=== PATIENT | female | born 1970 | race Caucasian/White ===

== ENCOUNTER → 2022-02-08 13:19 | Outpatient (BNVA) | payer OTHER, BC, SELFPAY | PROVIDERS: PCP Internal Medicine; Visit Provider Psychiatry & Neurology Neurology | DX: M54.12 Radiculopathy, cervical region (principal) ==

== ENCOUNTER 2022-03-01 18:47 | Outpatient (REF) | payer OTHER, SELFPAY ==
--- NOTE | ~2022-03-01 | MR_ITS ---
EXAMINATION: MR CERVICAL SPINE WITHOUT CONTRAST CLINICAL INFORMATION: 51-year-old with cervical radiculopathy. COMPARISON: None. TECHNIQUE: MRI of the cervical spine was obtained using routine sequences without contrast. FINDINGS: Alignment: [employer] Machine Operator view demonstrates [id number] cervicothoracic dextrocurvature, convex to the right at C7-T1. Slight lordotic curvature centered at C4-C5. Craniocervical Junction/C1-C2 Articulations: Intact and aligned. Visualized Intracranial Structures: Within normal limits. Vertebral Bodies: Well maintained. Disc Spaces and Endplates: Mild intervertebral disc space height loss noted at C5-C6. Remaining cervical intervertebral disc space heights are well maintained. Endplates appear intact. No significant spondylosis. Bone Marrow: No significant marrow-replacing process or bone marrow edema. Note is made of a 1.4 cm benign vertebral hemangioma occupying most of the C5 vertebral body. Tiny focus of subchondral marrow edema noted along the superior articulating facet of the right C5 vertebral body. C2-C3: No disc herniation or canal stenosis. No significant DJD or neural foraminal stenosis. C3-C4: No disc herniation, canal stenosis, DJD or neural foraminal stenosis. C4-C5: Shallow central to left central disc protrusion with minimal indentation of the ventral thecal sac without cord impingement or canal stenosis. No significant DJD or neural foraminal stenosis. C5-C6: Broad-based central disc protrusion with [id number] flattening of the ventral dural sac without cord impingement or canal stenosis. No significant DJD or neural foraminal stenosis. C6-C7: No disc herniation or canal stenosis. No significant DJD or neural foraminal stenosis. C7-T1: No disc herniation or canal stenosis. No significant DJD or neural foraminal stenosis. Spinal Cord: The cervical and visualized upper thoracic spinal cord is normal in morphology, caliber and signal intensity throughout. Extracranial Soft Tissues: The visualized paravertebral soft tissues are grossly unremarkable. MR/MR cervical spine wo con IMPRESSION: 1. Slight lordotic reversal centered at C4-C5 which is nonspecific but could be secondary to muscle spasm, with [id number] cervicothoracic dextrocurvature convex to the right at C7-T1. 2. Mild disc degenerative changes at C5-C6 with a broad-based central disc protrusion at this level without cord impingement or significant canal stenosis. Shallow central disc protrusion also noted at C4-C5. 3. Prominent vertebral hemangioma within the C5 vertebral body.
== END 2022-03-01 18:48 | disposition home or self-care (01) ==
LOC: HO.MRI 18:47
PROVIDERS: Visit Provider Psychiatry & Neurology Neurology
DX: M54.12 Radiculopathy, cervical region (principal); M54.2 Cervicalgia; S46.811A Strain of other muscles, fascia and tendons at shoulder and upper arm level, right arm, initial encounter
CPT/HCPCS: 72141

== ENCOUNTER → 2022-03-23 10:09 | Outpatient (BNVA) | payer OTHER, SELFPAY | PROVIDERS: PCP Internal Medicine; Visit Provider Psychiatry & Neurology Neurology | DX: R51.9 Headache, unspecified (principal); G24.3 Spasmodic torticollis; M54.12 Radiculopathy, cervical region; R29.2 Abnormal reflex; G89.29 Other chronic pain | CPT/HCPCS: 99212 ==

== ENCOUNTER 2022-04-02 18:43 | Emergency (ER) | payer OTHER, SELFPAY ==
[2022-04-02 18:47] VITALS: BP 155/65; PULSE 95; RESP 16; TEMP 36.8; O2SAT 99; BMI 25.2
== END 2022-04-02 21:55 | disposition left against medical advice (07) ==
LOC: HO.ED 21:45
PROVIDERS: Emergency Provider Emergency Medicine; PCP Psychiatry & Neurology Neurology
DX: R10.9 Unspecified abdominal pain (principal)
CPT/HCPCS: 99281

== ENCOUNTER 2022-04-03 08:55 | Outpatient (REF) | payer OTHER, BC, SELFPAY ==
[2022-04-03 11:17] LABS: MANUAL DIFF FLAG NO
[2022-04-03 11:25] LABS: Basophils Absolute Auto 0.1 X10*3/uL (0.0-0.2); Basophils Percent Auto 0.6 % (0-2); Eosinophils Absolute Auto 0.1 X10*3/uL (0.0-0.4); Eosinophils Percent Auto 1.2 % (0-4); Hematocrit 44.3 % (37.0-47.0); Hemoglobin 14.3 g/dl (12.0-16.0); Imm Gran Abs Auto 0.05 X10*3/uL (0.00-0.03); Imm Gran Pct Auto 0.5 % (0.0-0.4); Lymphocytes Absolute Auto 1.8 X10*3/uL (1.2-4.9); Lymphocytes Percent Auto 17.6 % (20-40); Mean Corpuscular HGB Conc 32.3 g/dl (31.0-35.0); Mean Corpuscular Hemoglobin 29.5 pg (27.0-33.0); Mean Corpuscular Volume 91.5 fL (80.0-98.0); Mean Platelet Volume 9.5 fL (9.4-12.3); Monocytes Percent Auto 9.3 % (2-11); Neutrophils Absolute Auto 7.3 x10*3/uL (2.0-8.3); Neutrophils Percent Auto 70.8 % (45-73); Platelet Count 321 X10*3/uL (160-400); Red Blood Count 4.84 X10*6/uL (4.20-5.50); Red Cell Distribution Width 13.3 % (11.0-16.0); White Blood Count 10.2 X10*3/uL (4.8-10.8)
[2022-04-03 11:58] LABS: Alanine Aminotransferase 9 U/L (0-31); Albumin Level 4.5 g/dL (3.5-5.0); Alkaline Phosphatase 46 U/L (39-117); Anion Gap 11 (12-20); Aspartate Amino Transferase 14 U/L (5-31); Bilirubin Direct 0.3 mg/dL (0.0-0.5); Bilirubin Total 0.8 mg/dL (0.0-1.0); Blood Urea Nitrogen 14 mg/dL (9-16); Calcium 9.6 mg/dL (8.4-10.2); Carbon Dioxide 27 mmol/L (22-29); Chloride 105 mmol/L (96-108); Estimated Glomerular Filt Rate > 60; Glucose Random 93 mg/dL (60-115); Potassium 4.9 mmol/L (3.3-5.1); Sodium 138 mmol/L (135-145); Total Protein 6.9 g/dL (6.5-8.0)
== END 2022-04-03 08:56 | disposition home or self-care (01) ==
LOC: HO.HMGCLDS 08:55
PROVIDERS: PCP Internal Medicine; Visit Provider Nurse Practitioner Family
DX: R10.12 Left upper quadrant pain (principal); D18.00 Hemangioma unspecified site
CPT/HCPCS: 36415; 80048; 80076; 85025

== ENCOUNTER 2022-05-17 08:00 | Outpatient (RCR) | payer OTHER, BC, SELFPAY ==
--- NOTE | 2022-04-19 11:55 | MHC.PT.EP ---
[facility] [place] [facility] [place] [facility] [place] [facility] [address] Nic Humphrey [address] [phone] F: [phone] F: [phone] F: [phone] F: [phone] Physical Therapy Plan of Care Date of Evaluation: Date of Surgery: n/a Diagnosis: spasmodic torticollis, headache Assessment: Patient is a 51 year old female presenting to PT with complaints of pain in her neck and headaches. Pt reports onset of pain began 01/16/2022 due to a shelving unit collapsing on her at work. She presents today with impairments in pain, posture, and muscle tightness. 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 Pt expresses [facility] goal of getting rid of headaches, and is motivated to work towards this in PT. Clinical presentation today is most consistent with signs and sx associated with possible muscle tension headaches and pt will benefit from skilled PT to address the following problems and impairments noted upon evaluation: pain, posture, and muscle tightness. These problems limit the patient with the following functional activities: ADLs, reaching, lifting, and work. The prescribed treatment plan of care is medically necessary. Co-morbidities of none were identified and taken into considerations of plan of care. Pt was educated on HEP, role of PT, prognosis, POC. Frequency and Duration: The patient will be seen 2 x week x 4 weeks Short Term Goals: Pt will demonstrate ability to perform chin tuck with good DNF recruitment in 2 weeks. Pt will demonstrate improved postural awareness by sitting with biomechanically correct posture without cues throughout session to improve overall postural function in 2 weeks. Pt will demonstrate min to no tenderness to R UT and suboccipitals in 2 weeks. Senior Teller Goals: Pt will demonstrate improved NDI score by 10% in 4 weeks for improved functional mobility. Pt will demonstrate ability to reach and lift with min to no pain in 4 weeks for improved ability to work. Treatment Plan: Modalities to reduce pain, spasms and effusion. Manual therapy to restore motion and function. Therapeutic exercise to improve strength and flexibility. Neuromuscular re-education for posture and balance. Therapeutic activities to return to functional activities of daily living. Electronically signed by: Natalya Amaya, PT, DPT, ATC Please sign and return to therapist. Thank you for your referral.
--- NOTE | 2022-05-17 08:42 | MHC.PT.DC ---
[facility] [place] [facility] [place] [facility] [place] [facility] [address] Nic Humphrey [address] [phone] F: [phone] F: [phone] F: [phone] F: [phone] Physical Therapy Discharge Report Diagnosis: spasmodic torticollis, headache Date of Surgery: n/a Date of Evaluation: 04/19/22 Date of Discharge: 05/17/22 Treatments to Date: 8 Cancellations to Date: 0 No Shows to Date: 0 Discharge Status: Achieved Goals Improved Function Independent with HEP Discharge Summary: 05/17/2022: Pt has made good progress since beginning skilled PT. Pain overall is better although she does still get some discomfort at times. She has met nearly all her goals at this time. She is independent and compliant with her HEP. She is able to manage onset of headaches with self massage techniques that we have reviewed. Advised continuation of her HEP at home for alf management of sx as they come up. Max benefits of PT have been provided at this time and skilled PT is no longer indicated at this time. Pt in agreement with d/c today. Electronically signed by: Natalya Amaya, PT, DPT, ATC Please sign and return to therapist. Thank you for your referral.
== END 2022-05-17 08:42 | disposition home or self-care (01) ==
LOC: HO.PTCHIC 08:00
PROVIDERS: Visit Provider Psychiatry & Neurology Neurology
DX: G24.3 Spasmodic torticollis (principal); G89.29 Other chronic pain; R51.9 Headache, unspecified
CPT/HCPCS: 97110; 97140; 97161

== ENCOUNTER → 2022-05-29 14:41 | Outpatient (BNVA) | payer OTHER, SELFPAY | PROVIDERS: PCP Internal Medicine; Visit Provider Psychiatry & Neurology Neurology | DX: R51.9 Headache, unspecified (principal); G24.3 Spasmodic torticollis; R29.2 Abnormal reflex; M47.812 Spondylosis without myelopathy or radiculopathy, cervical region; G89.29 Other chronic pain; M54.12 Radiculopathy, cervical region | CPT/HCPCS: 99212 ==

== ENCOUNTER 2023-05-02 14:23 | Outpatient (AMB) | payer BC, SELFPAY ==
--- NOTE | 2023-05-02 14:24 | A.OFFPC_ITS ---
Vital Signs 05/02/23 14:29 Height 5 ft 11 in Weight 180 lb 6 oz BMI 25.2 BP 122/90 H Blood Pressure Location Rt brachial Position Sitting Pulse 114 H Pulse Source Pulse Oximeter Pulse Oximetry (%) 97 Oxygen Delivery Method Room Air Intake Visit Reasons: Anxiety Allergies amoxicillin Allergy (Unknown, Verified 05/02/23 14:30) shortness of breath oseltamivir Adverse Reaction (Unknown, Verified 05/02/23 14:30) Diarrhea Medication List - Last Reconciled 05/02/23 by Jes Machuca MD amitriptyline 25 mg PO BEDTIME 90 days cyclobenzaprine 5 mg PO BID PRN 30 days escitalopram oxalate 10 mg PO DAILY 90 days gabapentin 600 mg (2 x 300 mg) PO BEDTIME magnesium oxide 400 mg PO DAILY methylprednisolone 0 mg PO pantoprazole 20 mg PO DAILY 30 days Tobacco use date assessed: 05/02/23 Dental Screening Dental Screen Date: 05/02/23 Did you have a dental visit in the last 12 months?: No Did you have a dental problem in the last 6 months where you did not have access to dental care?: No Was dental information given to patient?: No HPI Anxiety HPI Details Patient is a 52-year-old female with history of major depression disorder Was last seen by me 1 year ago when I started her on Lexapro and amitriptyline to sleep at night. Patient did well with Lexapro and then she stopped coming and stop taking medication. She is having relapse now she is crying and tells me that she cannot stop crying even in public places. And she does not know on the why she is crying. Patient also have a panic disorder which starts with a buzzing sensation in her head and then she become very uncomfortable. She tells me that once it happens and she wanted to call her boyfriend and nothing came out of her mouth. She has started seeing a therapist and she tells me that it has helped her a lot and she likes the therapist She has an appointment tomorrow as well they will put her on waiting list to see psychiatrist. Meanwhile I am restarting her on Lexapro 10 mg I have also sent lorazepam 14 tablet 1 mg to be taken 1 at night. Patient is to return next 2 when his stay she has along the paperwork that need to be filled for job as she is not able to work because of depression and anxiety at this time. Labs ordered to be done today. [facility] Surgical History No pertinent past surgical history Social History Housing: Other (mobile home ) Patient Tobacco Use Status: Current everyday Tobacco user Cigarettes Per Day: 6 e-Cigarette/Vaping Use: Never Used Current occupational status: employed Cognitive needs: No Hearing needs: No Vision needs: Yes Questionnaire PHQ-9 Over the last 2 weeks, how often have you been bothered by any of the following problems? 1. Little interest or pleasure in doing things: more than half the days 2. Feeling down, depressed, or hopeless: several days 3. Trouble falling or staying asleep, or sleeping too much: nearly every day 4. Feeling tired or having little energy: nearly every day 5. Poor appetite or overeating: more than half the days 6. Feeling bad about yourself - or that you are a failure or have let yourself or your family down: not at all 7. Trouble concentrating on things, such as reading the newspaper or watching television: not at all 8. Moving or speaking so slowly that other people could have noticed. Or the opposite - being so fidgety or restless that you have been moving around a lot more than usual: not at all 9. Thoughts that you would be better off or of hurting yourself in some way: not at all Total score: 11 Depression Screening Interpretation: Positive 42558 - PHQ-9 Billing: Yes Source: Developed by Drs. Soto Juarez, Nica Etienne, Feng Goodrich and colleagues, with an educational dixon from [employer]. Thrive Questionnaire Date Thrive assessed: 10/05/21 AUDIT C Alcohol Use Questionnaire (AUDIT-C) 1. How often do you have a drink containing alcohol?: Monthly or less 2. How many drinks containing alcohol do you have on a typical day when you are drinking?: 1 or 2 3. How often do you have six or more drinks on one occasion?: Never Total Score: 1 Score Reviewed/Action Taken: Yes RONALD-7 AMB Questionnaire RONALD-7 Date RONALD - 7 assessed: 01/19/22 Feeling nervous, anxious, or on edge: 1 = Several days Not being able to stop or control worryin = Several days Worrying too much about different things: 1 = Several days Trouble relaxin = Several days Being so restless that it is hard to sit still: 1 = Several days Becoming easily annoyed or irritable: 1 = Several days Feeling afraid as if something awful might happen: 1 = Several days Total RONALD-7 score (0-4 normal; 5-9 mild; 10-14 moderate; 15-21 severe): 7 Source: Developed by Drs. Soto Juarez, Nica Etienne, Feng Goodrich and colleagues, with an educational dixon from [employer]. RONALD-7 Assessment Billing RONALD-7 Assessment Tool: RONALD-7 Assessment 26034 Review of Systems Const Denies chills and Denies fever(s) ENT Denies epistaxis and Denies nasal discharge Card Denies chest pain Resp Denies chest congestion, Denies cough and Denies hemoptysis GI Denies diarrhea and Denies nausea Skin/Breast Denies rash Neuro Reports no additional complaints Psych Reports no additional complaints Endo Reports no additional complaints Physical exam (Primary Care) Vital Signs: Last Vital Signs Pulse 114 H 05/02/23 14:29 BP 122/90 H 05/02/23 14:29 Pulse Ox 97 05/02/23 14:29 Oxygen Delivery Method Room Air 05/02/23 14:29 BMI result Body Mass Index 25.2 Tobacco/Smoking Status: Tobacco use Status Tobacco use date assessed 05/02/23 05/02/23 14:30 Patient Tobacco Use Status Current everyday Tobacco 05/02/23 14:24 e-Cigarette/Vaping Use Never Used 05/02/23 14:24 Depression Screening Interpretation: Positive Thrive Assessment: Date of Thrive Assessment Date Thrive assessed 10/05/21 05/02/23 14:24 Const General: cooperative, comfortable and no acute distress Orientation/consciousness: patient oriented x3 HENMT Head: Yes normocephalic Eyes General: appearance normal, both eyes and all related structures Neck Neck: Yes supple Resp Effort & Inspection: normal respiratory effort, no cough and no stridor Cardio Rhythm: regular rhythm Heart sounds: S1 normal heart sound present and S2 normal heart sound present Skin General skin exam: turgor normal Neuro General: patient oriented x3, tone normal and moves all extremities Extrem Right lower extremity: no edema Left lower extremity: no edema Assessment and Plan Assessment & Plan (1) Major depressive disorder, severe: Code(s): F32.2 - Major depressive disorder, single episode, severe without psychotic features (2) Panic anxiety syndrome: Code(s): F41.0 - Panic disorder [episodic paroxysmal anxiety] (3) Anxiety, generalized: Code(s): F41.1 - Generalized anxiety disorder Plan Patient is a 52-year-old female with history of major depression disorder Was last seen by me 1 year ago when I started her on Lexapro and amitriptyline to sleep at night. Patient did well with Lexapro and then she stopped coming and stop taking medication. She is having relapse now she is crying and tells me that she cannot stop crying even in public places. And she does not know on the why she is crying. Patient also have a panic disorder which starts with a buzzing sensation in her head and then she become very uncomfortable. She tells me that once it happens and she wanted to call her boyfriend and nothing came out of her mouth. She has started seeing a therapist and she tells me that it has helped her a lot and she likes the therapist She has an appointment tomorrow as well they will put her on waiting list to see psychiatrist. Meanwhile I am restarting her on Lexapro 10 mg I have also sent lorazepam 14 tablet 1 mg to be taken 1 at night. Patient is to return next 2 when his stay she has along the paperwork that need to be filled for job as she is not able to work because of depression and anxiety at this time. Labs ordered to be done today. Orders: Orders Comprehensive Met. Panel Today F32.2 - Major depressive disorder, single episode, severe without psychotic features, F41.0 - Panic disorder [episodic paroxysmal anxiety], F41.1 - Generalized anxiety disorder Magnesium Today F32.2 - Major depressive disorder, single episode, severe without psychotic features, F41.0 - Panic disorder [episodic paroxysmal anxiety], F41.1 - Generalized anxiety disorder TSH reflex Free T4 Today F32.2 - Major depressive disorder, single episode, severe without psychotic features, F41.0 - Panic disorder [episodic paroxysmal anxiety], F41.1 - Generalized anxiety disorder Vitamin D 25-OH (D2 and D3) Today F32.2 - Major depressive disorder, single episode, severe without psychotic features, F41.0 - Panic disorder [episodic paroxysmal anxiety], F41.1 - Generalized anxiety disorder Complete Blood Count Auto Diff Today F32.2 - Major depressive disorder, single episode, severe without psychotic features, F41.0 - Panic disorder [episodic paroxysmal anxiety], F41.1 - Generalized anxiety disorder Medications: New lorazepam 1 mg PO BEDTIME PRN 14 tabs 0RF anxiety Changed From escitalopram oxalate 10 mg PO DAILY 90 days 90 tabs 0RF To escitalopram oxalate 10 mg PO DAILY 30 days 30 tabs 0RF Coding Level of Care Code Est Pt Level 4 (88510) Diagnoses Major depressive disorder, severe F32.2 Panic anxiety syndrome F41.0 Anxiety, generalized F41.1 Additional Codes RONALD-7 Assessment Billing - RONALD-7 Assessment Tool: RONALD-7 Assessment 02643 ([id number])
[2023-05-02 14:29] VITALS: BP 122/90; PULSE 114; O2SAT 97; BMI 25.2
== END 2023-05-02 14:55 | disposition home or self-care (01) ==
PROVIDERS: PCP Internal Medicine; Visit Provider Internal Medicine
DX: F32.2 Major depressive disorder, single episode, severe without psychotic features (principal); F41.0 Panic disorder [episodic paroxysmal anxiety]; F41.1 Generalized anxiety disorder
CPT/HCPCS: 96127; 99214

== ENCOUNTER 2023-05-02 14:53 | Outpatient (REF) | payer BC, SELFPAY ==
[2023-05-02 15:59] LABS: MANUAL DIFF FLAG NO
[2023-05-02 16:13] LABS: Basophils Absolute Auto 0.1 X10*3/uL (0.0-0.2); Eosinophils Absolute Auto 0.3 X10*3/uL (0.0-0.4); Eosinophils Percent Auto 2.8 % (0-4); Hemoglobin 15.3 g/dl (12.0-16.0); Imm Gran Abs Auto 0.03 X10*3/uL (0.00-0.03); Imm Gran Pct Auto 0.3 % (0.0-0.4); Lymphocytes Absolute Auto 2.4 X10*3/uL (1.2-4.9); Mean Corpuscular HGB Conc 33.3 g/dl (31.0-35.0); Mean Corpuscular Hemoglobin 30.1 pg (27.0-33.0); Mean Corpuscular Volume 90.6 fL (80.0-98.0); Mean Platelet Volume 9.9 fL (9.4-12.3); Monocytes Absolute Auto 0.5 X10*3/uL (0.1-1.2); Neutrophils Absolute Auto 5.8 x10*3/uL (2.0-8.3); Neutrophils Percent Auto 63.9 % (45-73); Platelet Count 296 X10*3/uL (160-400); Red Blood Count 5.08 X10*6/uL (4.20-5.50); Red Cell Distribution Width 12.8 % (11.0-16.0); White Blood Count 9.1 X10*3/uL (4.8-10.8)
[2023-05-02 16:29] LABS: Alanine Aminotransferase 8 U/L (0-31); Albumin Level 4.3 g/dL (3.5-5.0); Alkaline Phosphatase 43 U/L (39-117); Anion Gap 11 (12-20); Aspartate Amino Transferase 16 U/L (5-31); Bilirubin Total 0.5 mg/dL (0.0-1.0); Blood Urea Nitrogen 12 mg/dL (9-16); Calcium 9.9 mg/dL (8.4-10.2); Carbon Dioxide 26 mmol/L (22-29); Chloride 106 mmol/L (96-108); Estimated Glomerular Filt Rate > 60; Glucose Random 184 mg/dL (60-115); Magnesium 2.1 mg/dL (1.6-2.6); Potassium 4.1 mmol/L (3.3-5.1); Sodium 139 mmol/L (135-145); Total Protein 7.2 g/dL (6.5-8.0)
[2023-05-02 16:37] LABS: TSH reflex Free T4 1.56 uIU/mL (0.32-4.0)
[2023-05-06 15:29] LABS: Vitamin D 25-OH, D2 <4 ng/mL; Vitamin D 25-OH, D3 24 ng/mL; Vitamin D 25-OH, Total 24 ng/mL (30-100)
== END 2023-05-02 14:54 | disposition home or self-care (01) ==
LOC: HO.HMGCLDS 14:53
PROVIDERS: PCP Internal Medicine; Visit Provider Internal Medicine
DX: F32.2 Major depressive disorder, single episode, severe without psychotic features (principal); F41.0 Panic disorder [episodic paroxysmal anxiety]; F41.1 Generalized anxiety disorder
CPT/HCPCS: 36415; 80053; 82306; 83735; 84443; 85025

== ENCOUNTER 2023-05-09 09:39 | Outpatient (AMB) | payer BC, SELFPAY ==
[2023-05-09 09:47] VITALS: BP 146/86; PULSE 92; O2SAT 99; BMI 25.4
--- NOTE | 2023-05-09 09:47 | A.OFFPC_ITS ---
Vital Signs 05/09/23 09:47 Height 5 ft 11 in Weight 182 lb 4 oz BMI 25.4 BP 146/86 H Blood Pressure Location Lt brachial Position Sitting Pulse 92 Pulse Source Pulse Oximeter Pulse Oximetry (%) 99 Oxygen Delivery Method Room Air Intake Visit Reasons: 1 week follow up/OK by Joe Allergies amoxicillin Allergy (Unknown, Verified 05/09/23 09:48) shortness of breath oseltamivir Adverse Reaction (Unknown, Verified 05/09/23 09:48) Diarrhea Tobacco use date assessed: 05/09/23 Dental Screening Dental Screen Date: 05/09/23 Did you have a dental visit in the last 12 months?: Yes Did you have a dental problem in the last 6 months where you did not have access to dental care?: No Was dental information given to patient?: No HPI 1 week follow up/OK by Joe HPI Details Patient is a 52-year-old female came in today to have FMLA paperwork filled Patient was seen couple of weeks ago when she presented with severe anxiety and depression could not stop weeping I started her on Lexapro which patient has not been able to orange picker yet. However she tells me that pharmacy has notified that it is ready I also gave her few tablets of lorazepam 1 mg to be taken at night, pharmacy notified us yesterday that it is back ordered so I changed it to 0.5 mg. She is still feeling the same she is seeing counselor every week and still on a waiting list to see psychiatrist. I have pill her paperwork starting from 04/23/2022 till 06/23/2022 Based on her psychiatric condition. Most of the time this visit spent doing the paperwork. [facility] Surgical History No pertinent past surgical history Social History Housing: Other (mobile home ) Patient Tobacco Use Status: Current everyday Tobacco user Cigarettes Per Day: 6 e-Cigarette/Vaping Use: Never Used service: No Current occupational status: employed Cognitive needs: No Hearing needs: No Vision needs: Yes Questionnaire Thrive Questionnaire Date Thrive assessed: 10/05/21 AUDIT C Alcohol Use Questionnaire (AUDIT-C) 1. How often do you have a drink containing alcohol?: Never 3. How often do you have six or more drinks on one occasion?: Never Total Score: 0 Score Reviewed/Action Taken: Yes RONALD-7 AMB Questionnaire RONALD-7 Date RONALD - 7 assessed: 10/05/21 Source: Developed by Drs. Soto Juarez, Nica Etienne, Feng Goodrich and colleagues, with an educational dixon from [employer]. Review of Systems Const Denies chills and Denies fever(s) ENT Denies epistaxis and Denies nasal discharge Card Denies chest pain Resp Denies chest congestion, Denies cough and Denies hemoptysis GI Denies diarrhea and Denies nausea Skin/Breast Denies rash Neuro Reports no additional complaints Psych Reports no additional complaints Endo Reports no additional complaints Physical exam (Primary Care) Vital Signs: Last Vital Signs Pulse 92 05/09/23 09:47 BP 146/86 H 05/09/23 09:47 Pulse Ox 99 05/09/23 09:47 Oxygen Delivery Method Room Air 05/09/23 09:47 BMI result Body Mass Index 25.4 Tobacco/Smoking Status: Tobacco use Status Tobacco use date assessed 05/09/23 05/09/23 09:48 Patient Tobacco Use Status Current everyday Tobacco 05/09/23 09:48 e-Cigarette/Vaping Use Never Used 05/09/23 09:48 Thrive Assessment: Date of Thrive Assessment Date Thrive assessed 10/05/21 05/09/23 09:48 Const General: cooperative, comfortable and no acute distress Orientation/consciousness: patient oriented x3 HENMT Head: Yes normocephalic Eyes General: appearance normal, both eyes and all related structures Neck Neck: Yes supple Resp Effort & Inspection: normal respiratory effort, no cough and no stridor Cardio Rhythm: regular rhythm Heart sounds: S1 normal heart sound present and S2 normal heart sound present Skin General skin exam: turgor normal Neuro General: patient oriented x3, tone normal and moves all extremities Extrem Right lower extremity: no edema Left lower extremity: no edema Assessment and Plan Assessment & Plan (1) Major depressive disorder, severe: Code(s): F32.2 - Major depressive disorder, single episode, severe without psychotic features (2) Panic anxiety syndrome: Code(s): F41.0 - Panic disorder [episodic paroxysmal anxiety] (3) Anxiety, generalized: Code(s): F41.1 - Generalized anxiety disorder Plan Patient is a 52-year-old female came in today to have FMLA paperwork filled Patient was seen couple of weeks ago when she presented with severe anxiety and depression could not stop weeping I started her on Lexapro which patient has not been able to orange picker yet. However she tells me that pharmacy has notified that it is ready I also gave her few tablets of lorazepam 1 mg to be taken at night, pharmacy notified us yesterday that it is back ordered so I changed it to 0.5 mg. She is still feeling the same she is seeing counselor every week and still on a waiting list to see psychiatrist. I have pill her paperwork starting from 04/23/2022 till 06/23/2022 Based on her psychiatric condition. Most of the time this visit spent doing the paperwork. Coding Level of Care Code Est Pt Level 4 (23307) Diagnoses Major depressive disorder, severe F32.2 Panic anxiety syndrome F41.0 Anxiety, generalized F41.1 Comment 30 minute visit
== END 2023-05-09 10:19 | disposition home or self-care (01) ==
PROVIDERS: PCP Internal Medicine; Visit Provider Internal Medicine
DX: F32.2 Major depressive disorder, single episode, severe without psychotic features (principal); F41.0 Panic disorder [episodic paroxysmal anxiety]; F41.1 Generalized anxiety disorder
CPT/HCPCS: 99214

== ENCOUNTER 2023-07-06 07:31 | Outpatient (AMB) | payer BC, SELFPAY ==
--- NOTE | 2023-07-06 07:30 | MHC.PC.OV ---
Intake Visit Reasons: Anxiety Follow Up [phone] Allergies amoxicillin Allergy (Unknown, Verified 07/06/23 07:32) shortness of breath oseltamivir Adverse Reaction (Unknown, Verified 07/06/23 07:32) Diarrhea Medication List - Last Reconciled 07/06/23 by Jes Machuca MD buspirone 5 mg PO TID magnesium oxide 400 mg PO DAILY Tobacco use date assessed: 07/06/23 Dental Screening Dental Screen Date: 07/06/23 Did you have a dental visit in the last 12 months?: No Was dental information given to patient?: Patient has dentist HPI Anxiety Follow Up [phone] HPI Details This is a tele medicine visit Patient is 52-year-old female suffers from severe anxiety panic disorder and depression She has been given multiple medications to try and she could not take any of them because of side effects Lorazepam give her chest pains She could not take gabapentin She could not take Lexapro She could not take venlafaxine She could not take amitriptyline Patient also have a Mirena because of excessive uterine bleeding through OBGYN Dr. Nesha Rodrigez She is seeing a psychiatrist Dr. Fabian who recently gave her venlafaxine that she could not take because of dizziness She is having menopausal symptoms of sweating vaginal dryness unable to sleep I would recommend for her to discuss it further with her OBGYN. She is on FMLA due to psychiatric reasons At this point I am not sure how I can help her. She need to discuss her symptoms with OBGYN and psychiatrist. [facility] Surgical History No pertinent past surgical history Social History Housing: Other (mobile home ) Patient Tobacco Use Status: Current everyday Tobacco user Cigarettes Per Day: 6 e-Cigarette/Vaping Use: Never Used service: No Current occupational status: employed Cognitive needs: No Hearing needs: No Vision needs: Yes Questionnaire PHQ-9 Over the last 2 weeks, how often have you been bothered by any of the following problems? 1. Little interest or pleasure in doing things: more than half the days 2. Feeling down, depressed, or hopeless: nearly every day 3. Trouble falling or staying asleep, or sleeping too much: nearly every day 4. Feeling tired or having little energy: nearly every day 5. Poor appetite or overeating: several days 6. Feeling bad about yourself - or that you are a failure or have let yourself or your family down: not at all 7. Trouble concentrating on things, such as reading the newspaper or watching television: several days 8. Moving or speaking so slowly that other people could have noticed. Or the opposite - being so fidgety or restless that you have been moving around a lot more than usual: not at all 9. Thoughts that you would be better off or of hurting yourself in some way: not at all Total score: 13 Depression Screening Interpretation: Positive Depression Screening Follow-up: Existing condition and In treatment Depression Screening Done: Yes 96258 - PHQ-9 Billing: Yes Source: Developed by Drs. Soto Juarez, Nica Etienne, Feng Goodrich and colleagues, with an educational dixon from [employer]. Thrive Questionnaire Date Thrive assessed: 07/06/23 I am a: Patient What is your living situation today?: I have a steady place to live Within the past 12 months, did the food you bought not last and you didn't have the money to get more?: Never true Within the past 12 months, did you worry whether your food would run out before you got money to buy more?: Never true Do you have trouble paying for medicines?: No Do you have trouble getting transportation to medical appointments?: No Do you have trouble paying your heating and electricity bill?: No Do you have trouble taking care of your child, family member or friend?: No Do you have trouble with day-to-day activities such as bathing, preparing meals, shopping, managing finances, etc.?: No Are you currently unemployed and looking for a job?: No Are you interested in more education?: No Please select the resources that you would like help with: None Currently or been in a relationship where the following occur: no concerns reported AUDIT C Alcohol Use Questionnaire (AUDIT-C) 1. How often do you have a drink containing alcohol?: Monthly or less 2. How many drinks containing alcohol do you have on a typical day when you are drinking?: 1 or 2 3. How often do you have six or more drinks on one occasion?: Never Total Score: 1 Score Reviewed/Action Taken: No RONALD-7 AMB Questionnaire RONALD-7 Date RONALD - 7 assessed: 07/06/23 Feeling nervous, anxious, or on edge: 3 = Nearly every day Not being able to stop or control worryin = Several days Worrying too much about different things: 1 = Several days Trouble relaxin = More than half the days Being so restless that it is hard to sit still: 1 = Several days Becoming easily annoyed or irritable: 3 = Nearly every day Feeling afraid as if something awful might happen: 0 = Not at all Total RONALD-7 score (0-4 normal; 5-9 mild; 10-14 moderate; 15-21 severe): 11 Source: Developed by Drs. Soto Juarez, Nica Etienne, Feng Goodrich and colleagues, with an educational dixon from [employer]. RONALD-7 Assessment Billing RONALD-7 Assessment Tool: RONALD-7 Assessment 24239 Review of Systems Const Denies chills and Denies fever(s) ENT Denies epistaxis and Denies nasal discharge Card Denies chest pain Resp Denies chest congestion, Denies cough and Denies hemoptysis GI Denies diarrhea and Denies nausea Skin/Breast Denies rash Neuro Reports no additional complaints Psych Reports no additional complaints Endo Reports no additional complaints Physical exam (Primary Care) Tobacco/Smoking Status: Tobacco use Status Tobacco use date assessed 07/06/23 07/06/23 07:35 Patient Tobacco Use Status Current everyday Tobacco 07/06/23 07:30 e-Cigarette/Vaping Use Never Used 07/06/23 07:30 PHQ-9: PHQ-9 Score PHQ-9: Total score 13 07/06/23 07:50 Depression Screening Interpretation: Positive Depression Screening Follow-up: Existing condition and In treatment Thrive Assessment: Date of Thrive Assessment Date Thrive assessed 07/06/23 07/06/23 07:38 Currently or been in a relationship where the following occur: no concerns reported Telehealth Telehealth Location of provider rendering services: practice address Location of patient: address on file Patient Identification confirmed using: Name, : Yes Telehealth method: voice only Patient verbally consented to treatment: Yes Patient verbally consented to billing insurance company: Yes Patient informed of any privacy concerns related to visit: Yes Assessment and Plan Assessment & Plan (1) Major depressive disorder, severe: Code(s): F32.2 - Major depressive disorder, single episode, severe without psychotic features (2) Panic anxiety syndrome: Code(s): F41.0 - Panic disorder [episodic paroxysmal anxiety] (3) Anxiety, generalized: Code(s): F41.1 - Generalized anxiety disorder Plan This is a tele medicine visit Patient is 52-year-old female suffers from severe anxiety panic disorder and depression She has been given multiple medications to try and she could not take any of them because of side effects Lorazepam give her chest pains She could not take gabapentin She could not take Lexapro She could not take venlafaxine She could not take amitriptyline Patient also have a Mirena because of excessive uterine bleeding through OBGYN Dr. Nesha Rodrigez She is seeing a psychiatrist Dr. Fabian who recently gave her venlafaxine that she could not take because of dizziness She is having menopausal symptoms of sweating vaginal dryness unable to sleep I would recommend for her to discuss it further with her OBGYN. She is on FMLA due to psychiatric reasons At this point I am not sure how I can help her. She need to discuss her symptoms with OBGYN and psychiatrist. Coding Level of Care Code Tele Est Pt Level 3 (34172) Diagnoses Major depressive disorder, severe F32.2 Panic anxiety syndrome F41.0 Anxiety, generalized F41.1 Additional Codes RONALD-7 Assessment Billing - RONALD-7 Assessment Tool: RONALD-7 Assessment 51151 ([id number]) Time Spent (min) 21 Comment 16 with patient, 5 starting
== END 2023-07-06 08:41 | disposition home or self-care (01) ==
LOC: HO.HMGC 07:31
PROVIDERS: PCP Internal Medicine; Visit Provider Internal Medicine
DX: F32.2 Major depressive disorder, single episode, severe without psychotic features (principal); F41.0 Panic disorder [episodic paroxysmal anxiety]; F41.1 Generalized anxiety disorder
CPT/HCPCS: 99443

== ENCOUNTER 2023-08-14 09:42 | Outpatient (AMB) | payer BC, SELFPAY ==
[2023-08-14 09:43] VITALS: BP 118/78; PULSE 90; BMI 26.0
--- NOTE | 2023-08-14 09:43 | MHC.PC.OV ---
Vital Signs 08/14/23 09:43 Height 5 ft 11 in Weight 186 lb 4 oz BMI 26.0 BP 118/78 Blood Pressure Location Rt brachial Position Sitting Pulse 90 Intake Visit Reasons: 3 month fu Allergies amoxicillin Allergy (Unknown, Verified 08/14/23 09:43) shortness of breath oseltamivir Adverse Reaction (Unknown, Verified 08/14/23 09:43) Diarrhea Medication List - Last Reconciled 08/14/23 by Jes Machuca MD buspirone 5 mg PO TID magnesium oxide 400 mg PO DAILY nicotine (Nicoderm CQ) 1 patch transdermal DAILY Tobacco use date assessed: 08/14/23 Dental Screening Dental Screen Date: 08/14/23 Did you have a dental visit in the last 12 months?: Yes Did you have a dental problem in the last 6 months where you did not have access to dental care?: No Was dental information given to patient?: Patient has dentist HPI 3 month fu HPI Details Patient is a 53-year-old female came in today physical examination Patient suffers from severe anxiety and depression And has tried number of medications without any relief Lorazepam give her chest pains She could not take gabapentin She could not take Lexapro She could not take venlafaxine She could not take amitriptyline Patient also have a Mirena because of excessive uterine bleeding through OBGYN Dr. Nesha Rodrigez She is seeing a psychiatrist Dr. Fabian , she finally has started to feel better Patient could not tell what medications she is taking. She is due for mammogram Due for colonoscopy Pap smear is through OBGYN Patient have number of small angiomas on her abdomen She tells me that her grandmother had similar. Lab order placed to check lipids. Patient is tobacco smoker and is requesting Nicoderm patches I have sent 21 mg patch patient is to get back to me in couple of months to see how she is doing so we can sent step-down script Flu vaccine was given today [facility] Surgical History No pertinent past surgical history Social History Housing: Other (mobile home ) Patient Tobacco Use Status: Current everyday Tobacco user Cigarettes Per Day: 6 e-Cigarette/Vaping Use: Never Used service: No Current occupational status: employed Cognitive needs: No Hearing needs: No Vision needs: Yes Questionnaire Thrive Questionnaire Date Thrive assessed: 07/06/23 AUDIT C Alcohol Use Questionnaire (AUDIT-C) 1. How often do you have a drink containing alcohol?: Monthly or less 2. How many drinks containing alcohol do you have on a typical day when you are drinking?: 1 or 2 3. How often do you have six or more drinks on one occasion?: Never Total Score: 1 Score Reviewed/Action Taken: No RONALD-7 AMB Questionnaire RONALD-7 Date RONALD - 7 assessed: 07/06/23 Source: Developed by Drs. Soto Juarez, Nica Etienne, Feng Goodrich and colleagues, with an educational dixon from [employer]. Review of Systems Const Denies chills, Denies fever(s) and Denies headache(s) Eyes Denies blurry vision ENT Denies headache(s), Denies nasal discharge, Denies nasal obstruction, Denies odynophagia and Denies sinus pain Card Denies chest pain at rest and Denies chest pain with activity Resp Denies cough and Denies hemoptysis GI Denies diarrhea, Denies odynophagia, Denies vomiting and Denies hematemesis Reports as per HPI Musc Denies abnormal gait Skin/Breast Reports as per HPI Neuro Denies Neuro-related abnormal movements, Denies Abnormal speech present, Denies abnormal gait, Denies headache(s) and Denies Sensory deficit (Neuro) Psych Denies mood swings and Denies paranoia Endo Reports as per HPI Marco/Lymph Reports as per HPI Aller/Immun Reports as per HPI Physical exam (Primary Care) Vital Signs: Last Vital Signs Pulse 90 08/14/23 09:43 BP 118/78 08/14/23 09:43 BMI result Body Mass Index 26.0 Tobacco/Smoking Status: Tobacco use Status Tobacco use date assessed 08/14/23 08/14/23 09:45 Patient Tobacco Use Status Current everyday Tobacco 08/14/23 09:45 e-Cigarette/Vaping Use Never Used 08/14/23 09:45 Are you ready to quit: Yes Tobacco cessation counseling provided: Yes Relapse Prevention: discussed the importance of a supportive environment CPT code: 78087 - 4-10 Minutes Thrive Assessment: Date of Thrive Assessment Date Thrive assessed 07/06/23 08/14/23 09:45 Const General: cooperative, comfortable and no acute distress Orientation/consciousness: patient oriented x3 HENMT Head: Yes normocephalic and Yes atraumatic Eyes General: appearance normal, both eyes and all related structures Pupils: Equal, round and reactive pupils present EOM: EOMs intact bilaterally Neck Neck: Yes supple and No lymphadenopathy Thyroid: Thyroid normal Lymphatic: no lymphadenopathy noted Resp Effort & Inspection: normal respiratory effort and able to speak in complete sentences Auscultation: clear to auscultation bilaterally Cardio Heart sounds: S1 normal heart sound present and S2 normal heart sound present GI Palpation (GI): Soft to palpation and nontender Auscultation: normal bowel sounds General: Yes no CVA tenderness Back/Spine/Pelvis Back: no CVA tenderness Skin General skin exam: elasticity normal and turgor normal Neuro General: patient oriented x3 and gait normal Cranial nerves: Yes Equal, round and reactive pupils present Speech: No Abnormal speech present Sensory Exam: No Sensory deficit (Neuro) Coordination: tandem gait normal and Romberg test negative Extrem General: Yes normal exam except as noted and No edema Office Procedures Flu Questionnaire Does the patient have a severe egg allergy?: No Does the patient have severe life threatening allergies?: No Does the patient have a fever or illness today?: No Has the patient ever had Guillain-Cadwell Syndrome?: No Has the patient ever had any past reaction to a flu shot?: No Immunizations flu vacc [id number] 6mos up(PF) 60 mcg(15 mcgx4)/0.5 mL IM syringe Performing Provider: Jes Machuca MD Performing Location: [facility] Administered by: Griselda Kaplan CMA on 08/14/23 10:14 Dose Route Admin Location Dispensed Lot Number Expiration Date NDC System Consultant 0.5 mL IM Right Deltoid 0.5 mL [id number] 03/16/24 06636-941-79 [employer] VIS Given Date VIS Provided VIS Publication Date 08/14/23 Single Vaccine 21 Eligibility Eligibility Date Funding Source Not [facility] Eligible 08/14/23 Private Assessment and Plan Assessment & Plan (1) Encounter for general adult medical examination with abnormal findings: Code(s): Z00.01 - Encounter for general adult medical examination with abnormal findings (2) Major depressive disorder, severe: Code(s): F32.2 - Major depressive disorder, single episode, severe without psychotic features (3) Panic anxiety syndrome: Code(s): F41.0 - Panic disorder [episodic paroxysmal anxiety] (4) Tobacco abuse: Code(s): Z72.0 - Tobacco use Plan Patient is a 53-year-old female came in today physical examination Patient suffers from severe anxiety and depression And has tried number of medications without any relief Lorazepam give her chest pains She could not take gabapentin She could not take Lexapro She could not take venlafaxine She could not take amitriptyline Patient also have a Mirena because of excessive uterine bleeding through OBGYN Dr. Nesha Rodrigez She is seeing a psychiatrist Dr. Fabian , she finally has started to feel better Patient could not tell what medications she is taking. She is due for mammogram Due for colonoscopy Pap smear is through OBGYN Patient have number of small angiomas on her abdomen She tells me that her grandmother had similar. Lab order placed to check lipids. Patient is tobacco smoker and is requesting Nicoderm patches I have sent 21 mg patch patient is to get back to me in couple of months to see how she is doing so we can sent step-down script Flu vaccine was given today Orders: Orders Influenza [id number] Immunization Today Z23 - Encounter for immunization Lipid Panel Today F32.2 - Major depressive disorder, single episode, severe without psychotic features, F41.0 - Panic disorder [episodic paroxysmal anxiety], Z00.01 - Encounter for general adult medical examination with abnormal findings, Z72.0 - Tobacco use MM tomosynthesis screening BI Today Z12.31 - Encounter for screening mammogram for malignant neoplasm of breast Comprehensive [place]. Panel Fast Today F32.2 - Major depressive disorder, single episode, severe without psychotic features, F41.0 - Panic disorder [episodic paroxysmal anxiety], Z00.01 - Encounter for general adult medical examination with abnormal findings, Z72.0 - Tobacco use Referrals Open Access Screening Colonoscopy Referral Z12.11 - Encounter for screening for malignant neoplasm of colon, Z12.12 - Encounter for screening for malignant neoplasm of rectum Medications: New nicotine (Nicoderm CQ) 1 patch transdermal DAILY 28 ea 1RF Coding Level of Care Code Est Pt Prev Care 40-64y(05856) Diagnoses Encounter for general adult medical examination with abnormal findings Z00.01 Major depressive disorder, severe F32.2 Panic anxiety syndrome F41.0 Tobacco abuse Z72.0 Additional Codes Vital Signs *Quality* - CPT code: 03893 - 4-10 Minutes ([id number])
== END 2023-08-14 12:05 | disposition home or self-care (01) ==
PROVIDERS: PCP Internal Medicine; Visit Provider Internal Medicine
DX: Z00.00 Encounter for general adult medical examination without abnormal findings (principal); F32.2 Major depressive disorder, single episode, severe without psychotic features; F41.0 Panic disorder [episodic paroxysmal anxiety]; Z23 Encounter for immunization; Z72.0 Tobacco use
CPT/HCPCS: 90471; 90686; 99396

== ENCOUNTER 2024-05-19 11:32 | Emergency (ER) | payer BC, SELFPAY ==
--- NOTE | ~2024-05-19 | XR_ITS ---
EXAMINATION: XR CHEST CLINICAL INFORMATION: Shortness of breath, positive COMPARISON: None available. TECHNIQUE: 2 views of the chest were obtained. FINDINGS: No focal consolidation. No pneumothorax. Trachea is midline. Heart and mediastinal source is not enlarged. No pleural effusion. Osseous structures are intact. Soft tissues are unremarkable. XR/XR chest 2V IMPRESSION: No acute cardiopulmonary process. Electronically signed by: Yoko Sutton MD 05/19/2024 01:22 PM EDT
[2024-05-19 11:43] VITALS: BP 127/62; PULSE 100; O2SAT 100
[2024-05-19 12:00] VITALS: BP 119/53; PULSE 80; RESP 18; TEMP 36.5; O2SAT 100; BMI 26.3
--- NOTE | 2024-05-19 12:04 | ED.GENADULT ---
HPI - General Adult General Chief complaint: Upper Respiratory Symptoms Stated complaint: +COVID,SOB W/ANXIETY, 100% RA PER EMS Time Seen by Provider: 05/19/24 13:23 History of Present Illness ED Provider: Tori PARK narrative: The patient is a 53-year-old woman who called an ambulance today because she felt short of breath. She says that she was diagnosed with COVID 2 days ago at an urgent care center. She said that 3 days before that she had developed a cough and a sore throat and has been feeling unwell for about 3 or 4 days when she went to the urgent care center and was diagnosed with COVID. She says that she has been having intermittent episodes of a sense of pressure in her chest and today she felt short of breath and called 911. Paramedics felt the patient might be hyperventilating. They spoke to her and she seemed to calm and her respiratory symptoms seemed to improve. The patient says that her problems with breathing over the last few days has been intermittent. She also has a sore throat. Related Data Home Medications ?Medication ?Instructions ?Recorded ?Confirmed buspirone 5 mg tablet 5 mg PO TID 07/06/23 08/14/23 Previous Rx's ?Medication ?Instructions ?Recorded magnesium oxide 400 mg PO DAILY #30 tabs 02/08/22 nicotine 21 mg/24 hr daily 1 patch transdermal DAILY #28 ea 08/14/23 transdermal patch (Nicoderm CQ) albuterol sulfate 90 mcg/actuation 2 inh inhalation Q4-6H PRN 05/19/24 breath activated powder inhaler shortness of breath or wheezing #1 ea Allergies Allergy/AdvReac Type Severity Reaction Status Date / Time amoxicillin Allergy Unknown shortness Verified 05/19/24 12:02 of breath oseltamivir AdvReac Unknown Diarrhea Verified 05/19/24 12:02 Review of Systems Review of Systems: Yes all other systems are reviewed and are negative PMFSH Past Medical History Attestation statement: The following information was validated with the patient. Source: old records reviewed and nursing notes reviewed Surgical History No pertinent past surgical history Social History Social History Housing: Other (mobile home ) Patient Tobacco Use Status: Current everyday Tobacco user Cigarettes Per Day: 6 e-Cigarette/Vaping Use: Never Used Advance Directives: No Advance Directives Information Provided: No Do you have a plan to hurt others: No Plan service: No Current occupational status: employed Cognitive needs: No Hearing needs: No Vision needs: Yes Physical Exam ED Vital Signs: Vital Signs - 24 hr 05/19/24 12:00 05/19/24 13:56 05/19/24 15:05 Temperature 97.7 F 98 F Pulse Rate 80 80 75 Respiratory Rate 18 18 19 Blood Pressure 119/53 L 129/63 Pulse Oximetry 100 99 Oxygen Delivery Method Room Air Room Air BMI result Body Mass Index 26.3 Const Other: The patient is awake, alert, pleasant, cooperative. She does not appear in acute distress. No increased work of breathing. HENMT Other: The appearance of the face is unremarkable. The pharynx appears normal. The posterior pharynx appears normal. No tonsillar enlargement. No exudate. No erythema. Eyes Other: Pupils are round, equal, and reactive to light, extraocular movements intact, conjunctivae clear Neck Other: The patient has bilateral tenderness in the cervical anterior chain. However I do not really appreciate any discrete palpable nodes. Good range of motion of the neck without difficulty. Resp Other: No definite wheezing Effort & Inspection: normal respiratory effort Auscultation: clear to auscultation bilaterally Cardio Rate: regular rate Rhythm: regular rhythm Heart sounds: S1 normal heart sound present and S2 normal heart sound present Skin Other: Skin is dry and unremarkable Neuro Other: The patient is awake and alert with a normal mental status. Cranial nerves are grossly intact. She moves her extremities normally and appropriately. Extrem Other: No calf swelling or tenderness, no asymmetry, no edema Course Course Course Narrative: This is a Rapid Medical Examination (RME) performed by Jamal Gonzales PA-C in triage. Full HPI, ROS, assessment and treatment plan per primary provider in the Main ED. 53 yo female BIBA here for eval of sob and anxiety on waking this morning. reports waking up feeling sob, unsure if her anxiety is exacerbating this. call EMS and then took her anxiety meds (buspar). at presents states my glands feel swollen . + satting 100% on RA Plan: labs, ekg, cxr Medications Administered Discontinued Medications Generic Name Dose Route Start Last Admin Trade Name Freq PRN Reason Stop Dose Admin Albuterol Sulfate 4 puff 05/19/24 13:36 05/19/24 13:55 Albuterol Sulfate 90 Mcg 8 Gm Inhaler INHALE 05/19/24 13:37 4 puff ONCE ONE Administration Medical Decision Making Medical Decision Making [facility] Narrative: The patient is a 53-year-old woman who came to the emergency room because of acute shortness of breath. She apparently tested for COVID at an urgent care center 3 days ago. Paramedics thought she might be hyperventilating. She does not appear short of breath at the time that I saw her. Her vital signs are stable. She has no signs of a DVT. She is not on any hormonal treatment. I do not have a high suspicion for pulmonary embolism. EKG is unremarkable. Chest x-ray is clear. CBC is unremarkable. She was complaining of a sore throat. Her rapid strep is negative. Overall the patient is reassured. Prescribed an albuterol inhaler to see if this might help with her symptoms. Otherwise I think most of her symptoms are related to her COVID. She is given a work note. Lab Data 05/19/24 12:34 05/19/24 12:34 Labs: Lab Results 05/19/24 05/19/24 Range/Units 12:34 14:03 WBC 5.9 (4.8-10.8) X10*3/uL RBC 4.92 (4.20-5.50) X10*6/uL Hgb 14.8 (12.0-16.0) g/dl Hct 42.5 (37.0-47.0) % MCV 86.4 (80.0-98.0) fL MCH 30.1 (27.0-33.0) pg MCHC 34.8 (31.0-35.0) g/dl RDW 12.5 (11.0-16.0) % Plt Count 233 (160-400) X10*3/uL MPV 9.6 (9.4-12.3) fL Immature Gran % (Auto) 0.2 (0.0-0.4) % Neut % (Auto) 71.7 (45-73) % Lymph % (Auto) 18.3 L (20-40) % Piatt % (Auto) 8.4 (2-11) % Eos % (Auto) 0.7 (0-4) % Baso % (Auto) 0.7 (0-2) % Lymph # (Auto) 1.1 L (1.2-4.9) X10*3/uL Piatt # (Auto) 0.5 (0.1-1.2) X10*3/uL Eos # (Auto) 0.0 (0.0-0.4) X10*3/uL Baso # (Auto) 0.0 (0.0-0.2) X10*3/uL Abs Immat Gran (auto) 0.01 (0.00-0.03) X10*3/uL Absolute Neuts (auto) 4.2 (2.0-8.3) x10*3/uL Absolute Nucleated RBC 0.000 (0.0-0.012) X10*3/uL Nucleated RBC % (auto) 0.0 (0.0-0.2) /100WBC Sodium 142 (135-145) mmol/L Potassium 3.7 (3.3-5.1) mmol/L Chloride 109 H (96-108) mmol/L Carbon Dioxide 22 (22-29) mmol/L Anion Gap 15 (12-20) BUN 16 (9-16) mg/dL Creatinine 0.79 (0.5-1.4) mg/dL Estim Creat Clear Calc 98.5 Estimated GFR > 60 Random Glucose 102 (60-115) mg/dL Calcium 10.2 (8.4-10.2) mg/dL Magnesium 2.0 (1.6-2.6) mg/dL Total Bilirubin 0.5 (0.0-1.0) mg/dL AST 20 (5-31) U/L ALT 14 (0-31) U/L Alkaline Phosphatase 52 (39-117) U/L Troponin I High Sens < 2.7 (<3.5-17.0) ng/L Total Protein 6.9 (6.5-8.0) g/dL Albumin 4.1 (3.5-5.0) g/dL S. pyogenes GrpA YANET Negative (Negative) Independent Interpretation I performed an independent interpretation of an: EKG Interpretation: EKG at 12:21 shows normal sinus rhythm at 80 beats per minute. No acute ischemic changes Critical Care Time Critical Care Time Critical Care Time: No Discharge Plan Discharge Clinical Impression: COVID-19, Shortness of breath Patient Disposition: Home, Self-Care Instructions: How to Use a Metered-Dose Inhaler and a Spacer (ED), COVID-19 (Coronavirus Disease 2019) (ED) Additional Instructions: You should be isolated because of your COVID for proximally a total of 10 days. The first 5 days at the most important. After 5 days of isolation at home you may wear a mask when going outside and encountering other people. Nevertheless I think it would be good for you to stay off work until the 10 day rolo. Please use ibuprofen and acetaminophen as needed for discomfort. You have been prescribed albuterol which you may use 2-4 puffs every 4-6 hours as needed for shortness of breath. Stay in touch with your regular doctor for additional advice as needed. Return to the emergency room if significantly worse. Prescriptions: New albuterol sulfate 90 mcg/actuation aerosol powdr breath activated 2 inh inhalation Q4-6H PRN (Reason: shortness of breath or wheezing) Qty: 1 0RF No Action nicotine [Nicoderm CQ] 21 mg/24 hr patch 24 hour 1 patch transdermal DAILY Qty: 28 1RF buspirone 5 mg tablet 5 mg PO TID magnesium oxide 400 mg magnesium tablet 400 mg PO DAILY Qty: 30 6RF Referrals: Jes Machuca MD [Primary Care Provider] - 2 days Stand Alone Forms: Work/School Release Interventions: ED Discharge Assessment Last Done: 05/19/24 15:05 Discharge Date/Time: 05/19/24 15:25 Print Language: Montserratian
--- NOTE | 2024-05-19 12:07 | ECG_ITS ---
Test Reason : SOB Blood Pressure : / mmHG Vent. Rate : 080 BPM Atrial Rate : 080 BPM P-R Int : 154 ms QRS Dur : 078 ms QT Int : 374 ms P-R-T Axes : 051 036 043 degrees QTc Int : 431 ms Normal sinus rhythm Low voltage QRS Borderline ECG No previous ECGs available Referred By: Fanny Gonzales Electronically Signed By:DEDRA HILTON
[2024-05-19 12:40] LABS: MANUAL DIFF FLAG NO
[2024-05-19 12:44] LABS: Basophils Percent Auto 0.7 % (0-2); Eosinophils Percent Auto 0.7 % (0-4); Hematocrit 42.5 % (37.0-47.0); Hemoglobin 14.8 g/dl (12.0-16.0); Imm Gran Abs Auto 0.01 X10*3/uL (0.00-0.03); Imm Gran Pct Auto 0.2 % (0.0-0.4); Lymphocytes Absolute Auto 1.1 X10*3/uL (1.2-4.9); Lymphocytes Percent Auto 18.3 % (20-40); Mean Corpuscular HGB Conc 34.8 g/dl (31.0-35.0); Mean Corpuscular Hemoglobin 30.1 pg (27.0-33.0); Mean Corpuscular Volume 86.4 fL (80.0-98.0); Mean Platelet Volume 9.6 fL (9.4-12.3); Monocytes Absolute Auto 0.5 X10*3/uL (0.1-1.2); Monocytes Percent Auto 8.4 % (2-11); Neutrophils Absolute Auto 4.2 x10*3/uL (2.0-8.3); Neutrophils Percent Auto 71.7 % (45-73); Platelet Count 233 X10*3/uL (160-400); Red Blood Count 4.92 X10*6/uL (4.20-5.50); Red Cell Distribution Width 12.5 % (11.0-16.0); White Blood Count 5.9 X10*3/uL (4.8-10.8)
[2024-05-19 12:57] LABS: Alanine Aminotransferase 14 U/L (0-31); Albumin Level 4.1 g/dL (3.5-5.0); Alkaline Phosphatase 52 U/L (39-117); Anion Gap 15 (12-20); Aspartate Amino Transferase 20 U/L (5-31); Bilirubin Total 0.5 mg/dL (0.0-1.0); Blood Urea Nitrogen 16 mg/dL (9-16); Calcium 10.2 mg/dL (8.4-10.2); Carbon Dioxide 22 mmol/L (22-29); Chloride 109 mmol/L (96-108); Creatinine Clr Calc Pharmacy 98.5; Estimated Glomerular Filt Rate > 60; Glucose Random 102 mg/dL (60-115); Potassium 3.7 mmol/L (3.3-5.1); Sodium 142 mmol/L (135-145); Total Protein 6.9 g/dL (6.5-8.0)
[2024-05-19 13:11] LABS: Troponin-I High Sensitivity < 2.7 ng/L (<3.5-17.0)
[2024-05-19] MEDS: Albuterol Sulfate 90 MCG 8 GM INHALER 4 PUFF INHALE (13:55)
[2024-05-19 13:56] VITALS: PULSE 80; RESP 18; O2SAT 97
[2024-05-19 14:40] LABS: IDNOW Serial# 6674DD1D; Strep A Nucleic Acid Negative (Negative)
[2024-05-19 15:05] VITALS: BP 129/63; PULSE 75; RESP 19; TEMP 36.6; O2SAT 99
== END 2024-05-19 15:25 | disposition home or self-care (01) ==
PROVIDERS: Physician Assistant Medical; Emergency Provider Emergency Medicine; PCP Internal Medicine
DX: U07.1 COVID-19 (principal); R06.02 Shortness of breath; R05.9 Cough, unspecified; J02.9 Acute pharyngitis, unspecified
CPT/HCPCS: 36415; 71046; 80053; 83735; 84484; 85025; 87651; 93005; 94640; 99284

== ENCOUNTER 2024-05-26 08:08 | Outpatient (AMB) | payer BC, SELFPAY ==
[2024-05-26 08:11] VITALS: BP 114/80; PULSE 88; O2SAT 97; BMI 26.4
--- NOTE | 2024-05-26 08:11 | AM.OFFWIN_ITS ---
Intake Vital Signs 05/26/24 08:11 Height 5 ft 11 in Weight 189 lb BMI 26.4 BP 114/80 Blood Pressure Location Rt brachial Position Sitting Pulse 88 Pulse Source Pulse Oximeter Pulse Oximetry (%) 97 Oxygen Delivery Method Room Air Intake Visit Reasons: EP dizzy, tired Intake Note: Patient here for fatigue and dizzy constantly which has been going on for about 1 week. she did recently have covid and since then has been having these symptoms. Patient Tobacco Use Status: Current everyday Tobacco user Allergies amoxicillin Allergy (Unknown, Verified 05/26/24 08:14) shortness of breath oseltamivir Adverse Reaction (Unknown, Verified 05/26/24 08:14) Diarrhea Do you need a note to return to daycare/school/sports/work: Yes HPI HPI Comments History of Present Illness Details Patient is a 53-year-old female who tested positive for COVID 10 days ago. She states that she went to the ER 1 week ago because she felt like an el ephant was sitting on her chest, they did labs, a chest x-ray and an EKG and everything was normal. Patient states she recovered in his feeling much better except she has a residual fatigue and dizziness. She states she quit smoking about a month ago. She states she also has chronic anxiety and panic attacks. She is not comfortable driving right now because of the dizziness. She says the dizziness just comes and goes and nothing seems to provoke it, nothing seems to make it better. She denies any shortness of breath, chest pain PFSH Surgical History No pertinent past surgical history Social History Housing: Other (mobile home ) Patient Tobacco Use Status: Current everyday Tobacco user Cigarettes Per Day: 6 e-Cigarette/Vaping Use: Never Used service: No Current occupational status: employed Cognitive needs: No Hearing needs: No Vision needs: Yes Review of Systems Const All systems reviewed & are unremarkable except as noted in HPI and below Physical Exam Vital Signs: Last Vital Signs Pulse 88 05/26/24 08:11 BP 114/80 05/26/24 08:11 Pulse Ox 97 05/26/24 08:11 Oxygen Delivery Method Room Air 05/26/24 08:11 BMI result Body Mass Index 26.4 Const General: cooperative, healthy appearing, comfortable and no acute distress Orientation/consciousness: patient oriented x3 Limitations: no limitations HEENT Head: Yes normal to inspection Ears: hearing grossly normal bilaterally, external ears normal, EAC's normal (left), Abnormal EAC present excessive cerumen on the left, erythema on the right and edema on the right and unable to visualize TM on the left General nose exam: Normal external nose present, Normal nares present and No nasal discharge present Face and sinus: Yes normal facial exam Mouth: Normal oral and palatal mucosa present and moist mucous membranes Throat: Yes tonsils normal, Yes uvula midline and Yes posterior oropharynx abnormal (Erythema) Eyes General: appearance normal, both eyes and all related structures Neck Neck: Yes normal visual inspection Resp Effort & Inspection: normal respiratory effort, able to speak in complete sentences, no respiratory distress, not tachypneic, no tripod positioning and no use of accessory muscles Skin General skin exam: no rashes or lesions noted Neuro General: patient oriented x3 Extrem General: Yes normal to inspection and Yes no clubbing, cyanosis or edema Assessment & Plan Assessment & Plan (1) Otitis externa of right ear: Code(s): H60.91 - Unspecified otitis externa, right ear Qualifiers: Otitis externa type: other infective Chronicity: acute Qualified Code(s): H60.391 - Other infective otitis externa, right ear Plan: Sent drops to pharmacy (2) Dizziness: Code(s): R42 - Dizziness and giddiness Plan: Could not see either tympanic membrane but likely residual inflammation from her COVID infection, sent prednisone burst to pharmacy Plan see above Medications: New [id number]-LH 3.5-10,000-1 mg/mL-unit/mL-% 4 drps otic (ear) right Q8H 7 days 10 mL 0RF prednisone 20 mg PO DAILY 5 tabs 0RF Coding Level of Care Code Est Pt Level 3 (99110) Diagnoses Other infective acute otitis externa of right ear H60.391 Otitis externa type: other infective Chronicity: acute Dizziness R42
== END 2024-05-26 08:57 | disposition home or self-care (01) ==
PROVIDERS: PCP Internal Medicine; Visit Provider Physician Assistant
DX: H60.391 Other infective otitis externa, right ear (principal); R42 Dizziness and giddiness
CPT/HCPCS: 99213

== ENCOUNTER 2024-06-03 09:14 | Outpatient (AMB) | payer BC, SELFPAY ==
--- NOTE | 2024-06-03 09:16 | A.OFFPC_ITS ---
Vital Signs 06/03/24 09:17 Height 5 ft 11 in Weight 195 lb BMI 27.2 BP 102/68 Blood Pressure Location Rt brachial Position Sitting Pulse 79 Pulse Source Pulse Oximeter Pulse Oximetry (%) 99 Oxygen Delivery Method Room Air Intake Visit Reasons: ED F/u~ Walkn In F/u Allergies amoxicillin Allergy (Unknown, Verified 06/03/24 09:18) shortness of breath oseltamivir Adverse Reaction (Unknown, Verified 06/03/24 09:18) Diarrhea Medication List - Last Reconciled 06/03/24 by Jes Machuca MD albuterol sulfate 90 mcg/actuation 2 inhalations inhalation Q4-6H PRN buspirone 5 mg PO TID magnesium oxide 400 mg PO DAILY Tobacco use date assessed: 06/03/24 Dental Screening Dental Screen Date: 06/03/24 Did you have a dental visit in the last 12 months?: Yes Did you have a dental problem in the last 6 months where you did not have access to dental care?: No Was dental information given to patient?: Patient has dentist HPI ED F/u~ Walkn In /u HPI Details 53-year-old female came in after emergen cy room visit dated 05/19/2022 Patient presented with a chief complaint of shortness a breath secondary to COVID and anxiety She was diagnosed with COVID 2 days prior to arrival at urgent care, patient had mild cough and was feeling unwell, patient verbalized to feeling sensor pressure in her chest so she called 911. Patient have underlying diagnosis of anxiety and is taking buspirone In emergency room her respiratory exam was within normal limit Her EKG was unremarkable Chest x-ray was clear CBC unremarkable, white count 5.9 Strep test negative Patient was a reassured, and was prescribed inhaler albuterol After evaluation patient was discharged She came in today for follow-up appointment She is feeling better, pulse ox is 99% on room air However her anxiety is not controlled Patient is seeing a psychiatrist and therapist, she is on buspirone 5 mg 3 times a day Continued to have panic like feeling at night waking up frequently and pacing around the house Patient says that she has talked about her anxiety with the psychiatrist but they are not helping her She says that she feels she is going to lose her job I am prescribing lorazepam 0.5 mg she may take 1 at night as needed Patient was notified This medication is Habit forming and may cause Psychological dependence, It can cause drowsiness, dizziness, cognitive impairment , slowing of reflexes along with some other side effect . She also have wax buildup in both ears I have sent Debrox ear drops patient is to start using that 5 days before her next appointment in 3 weeks [facility] Surgical History No pertinent past surgical history Social History Housing: Other Patient Tobacco Use Status: Former Tobacco user Cigarettes Per Day: 6 e-Cigarette/Vaping Use: Never Used service: No Current occupational status: employed Cognitive needs: No Hearing needs: No Vision needs: Yes Questionnaire PHQ-9 Over the last 2 weeks, how often have you been bothered by any of the following problems? 1. Little interest or pleasure in doing things: not at all 2. Feeling down, depressed, or hopeless: not at all 3. Trouble falling or staying asleep, or sleeping too much: not at all 4. Feeling tired or having little energy: not at all 5. Poor appetite or overeating: not at all 6. Feeling bad about yourself - or that you are a failure or have let yourself or your family down: not at all 7. Trouble concentrating on things, such as reading the newspaper or watching television: not at all 8. Moving or speaking so slowly that other people could have noticed. Or the opposite - being so fidgety or restless that you have been moving around a lot more than usual: not at all 9. Thoughts that you would be better off or of hurting yourself in some way: not at all Total score: 0 Depression Screening Interpretation: Negative Depression Screening Done: Yes 93619 - PHQ-9 Billing: Yes Source: Developed by Drs. Soto Juarez, Nica Etienne, Feng Goodrich and colleagues, with an educational dixon from [employer]. Thrive Questionnaire Date Thrive assessed: 06/03/24 I am a: Patient Within the past 12 months, did the food you bought not last and you didn't have the money to get more?: Never true Within the past 12 months, did you worry whether your food would run out before you got money to buy more?: Never true Do you have trouble paying for medicines?: No Do you have trouble getting transportation to medical appointments?: No Do you have trouble paying your heating and electricity bill?: No Do you have trouble taking care of your child, family member or friend?: No Do you have trouble with day-to-day activities such as bathing, preparing meals, shopping, managing finances, etc.?: No Are you currently unemployed and looking for a job?: No Are you interested in more education?: No Please select the resources that you would like help with: None Currently or been in a relationship where the following occur: No concerns reported THRIVE Score: 0 AUDIT C Alcohol Use Questionnaire (AUDIT-C) 1. How often do you have a drink containing alcohol?: Monthly or less 2. How many drinks containing alcohol do you have on a typical day when you are drinking?: 1 or 2 3. How often do you have six or more drinks on one occasion?: Never Total Score: 1 Score Reviewed/Action Taken: Yes RONALD-7 AMB Questionnaire RONALD-7 Date RONALD - 7 assessed: 06/03/24 Feeling nervous, anxious, or on edge: 0 = Not at all Not being able to stop or control worryin = Not at all Worrying too much about different things: 0 = Not at all Trouble relaxin = Not at all Being so restless that it is hard to sit still: 0 = Not at all Becoming easily annoyed or irritable: 0 = Not at all Feeling afraid as if something awful might happen: 0 = Not at all Total RONALD-7 score (0-4 normal; 5-9 mild; 10-14 moderate; 15-21 severe): 0 Source: Developed by Drs. Soto Juarez, Nica Etienne, Feng Goodrich and colleagues, with an educational dixon from [employer]. RONALD-7 Assessment Billing RONALD-7 Assessment Tool: RONALD-7 Assessment 25986 Review of Systems Const Denies chills and Denies fever(s) ENT Denies epistaxis and Denies nasal discharge Card Denies chest pain Resp Denies chest congestion, Denies cough and Denies hemoptysis GI Denies diarrhea and Denies nausea Skin/Breast Denies rash Neuro Reports no additional complaints Psych Reports no additional complaints Endo Reports no additional complaints Physical exam (Primary Care) Vital Signs: Last Vital Signs Pulse 79 06/03/24 09:17 BP 102/68 06/03/24 09:17 Pulse Ox 99 06/03/24 09:17 Oxygen Delivery Method Room Air 06/03/24 09:17 BMI result Body Mass Index 27.2 Tobacco/Smoking Status: Tobacco use Status Tobacco use date assessed 06/03/24 06/03/24 09:21 Patient Tobacco Use Status Former Tobacco user 06/03/24 09:21 e-Cigarette/Vaping Use Never Used 06/03/24 09:21 PHQ-9: PHQ-9 Score PHQ-9: Total score 0 06/03/24 09:23 Depression Screening Interpretation: Negative Thrive Assessment: Date of Thrive Assessment Date Thrive assessed 06/03/24 06/03/24 09:21 Currently or been in a relationship where the following occur: No concerns reported Const General: cooperative, comfortable and no acute distress Orientation/consciousness: patient oriented x3 HENMT Other: Wax buildup both ears impacting ear canal Head: Yes normocephalic Eyes General: appearance normal, both eyes and all related structures Neck Neck: Yes supple Resp Effort & Inspection: normal respiratory effort, no cough and no stridor Cardio Rhythm: regular rhythm Heart sounds: S1 normal heart sound present and S2 normal heart sound present Skin General skin exam: turgor normal Neuro General: patient oriented x3, tone normal and moves all extremities Extrem Right lower extremity: no edema Left lower extremity: no edema Assessment and Plan Assessment & Plan (1) Panic anxiety syndrome: Code(s): F41.0 - Panic disorder [episodic paroxysmal anxiety] (2) Impacted cerumen, bilateral: Code(s): H61.23 - Impacted cerumen, bilateral (3) Anxiety about health: Code(s): F41.8 - Other specified anxiety disorders (4) COVID-19 virus infection: Code(s): U07.1 - COVID-19 (5) Shortness of breath: Code(s): R06.02 - Shortness of breath (6) Ex-smoker: Comment: Quit in March of 2024, smoked for 30 years Code(s): Z87.891 - Personal history of nicotine dependence (7) Vivid dream: Code(s): R68.89 - Other general symptoms and signs Plan 53-year-old female came in after emergency room visit dated 05/19/2022 Patient presented with a chief complaint of shortness a breath secondary to COVID and anxiety She was diagnosed with COVID 2 days prior to arrival at urgent care, patient had mild cough and was feeling unwell, patient verbalized to feeling sensor pressure in her chest so she called 911. Patient have underlying diagnosis of anxiety and is taking buspirone In emergency room her respiratory exam was within normal limit Her EKG was unremarkable Chest x-ray was clear CBC unremarkable, white count 5.9 Strep test negative Patient was a reassured, and was prescribed inhaler albuterol After evaluation patient was discharged She came in today for follow-up appointment She is feeling better, pulse ox is 99% on room air However her anxiety is not controlled Patient is seeing a psychiatrist and therapist, she is on buspirone 5 mg 3 times a day Continued to have panic like feeling at night waking up frequently and pacing around the house Patient says that she has talked about her anxiety with the psychiatrist but they are not helping her She says that she feels she is going to lose her job I am prescribing lorazepam 0.5 mg she may take 1 at night as needed Patient was notified This medication is Habit forming and may cause Psychological dependence, It can cause drowsiness, dizziness, cognitive impairment , slowing of reflexes along with some other side effect . She also have wax buildup in both ears I have sent Debrox ear drops patient is to start using that 5 days before her next appointment in 3 weeks Medications: New lorazepam 0.5 mg PO BEDTIME PRN 30 tabs 0RF anxiety carbamide peroxide 6.5% (Debrox) 5 drps otic (ears) Q12H 15 mL 0RF 4 days Coding Level of Care Code Est Pt Level 4 (23466) Diagnoses Panic anxiety syndrome F41.0 Impacted cerumen, bilateral H61.23 Anxiety about health F41.8 COVID-19 virus infection U07.1 Shortness of breath R06.02 Ex-smoker Z87.891 Vivid dream R68.89 Additional Codes RONALD-7 Assessment Billing - RONALD-7 Assessment Tool: RONALD-7 Assessment [id number] ([id number])
[2024-06-03 09:17] VITALS: BP 102/68; PULSE 79; O2SAT 99; BMI 27.2
== END 2024-06-03 09:36 | disposition home or self-care (01) ==
PROVIDERS: PCP Internal Medicine; Visit Provider Internal Medicine
DX: F41.0 Panic disorder [episodic paroxysmal anxiety] (principal); H61.23 Impacted cerumen, bilateral; F41.8 Other specified anxiety disorders; U07.1 COVID-19; R06.02 Shortness of breath; Z87.891 Personal history of nicotine dependence; R68.89 Other general symptoms and signs

== ENCOUNTER → 2024-06-03 09:14 | Outpatient (BNVA) | payer BC, SELFPAY | PROVIDERS: PCP Internal Medicine; Visit Provider Internal Medicine | DX: U07.1 COVID-19 (principal); F41.0 Panic disorder [episodic paroxysmal anxiety]; F41.8 Other specified anxiety disorders; H61.23 Impacted cerumen, bilateral; R68.89 Other general symptoms and signs; Z87.891 Personal history of nicotine dependence | CPT/HCPCS: 96127 ==

== ENCOUNTER 2024-06-17 06:55 | Emergency (ER) | payer BC, SELFPAY ==
--- NOTE | ~2024-06-17 | CT_ITS ---
EXAMINATION: CT ABDOMEN AND PELVIS WITH CONTRAST CLINICAL INFORMATION: Right lower quadrant pain COMPARISON: None available. TECHNIQUE: Multidetector volumetric images were obtained from the superior aspect of the liver through the pubic symphysis following administration 85 mL of Omnipaque 350 intravenous contrast. Sagittal and coronal reformatted images were obtained on the technologist's workstation. Oral contrast: No This CT examination was performed using dose optimization techniques as appropriate, variously including the following: *Automated exposure control *Adjustment of mA and/or kV according to patient size (this includes techniques or standardized protocols for targeted exams where dose is matched to indication/reason for exam; i.e. extremities or head) *Use of iterative reconstruction technique DLP: 649 mGy-cm FINDINGS: LUNG BASES: The visualized lung bases are unremarkable. LIVER, GALLBLADDER, AND BILIARY TREE: Right lobe measures 19.1 cm. Normal attenuation. No focal hepatic lesion or biliary ductal dilatation is present. The gallbladder is unremarkable with no evidence of radiopaque gallstones, gallbladder wall thickening, or obvious pericholecystic inflammatory changes. PANCREAS: Unremarkable. SPLEEN: Unremarkable. ADRENAL GLANDS: Unremarkable. KIDNEYS AND URETERS: The kidneys are normal in size, shape, and attenuation. No hydronephrosis, hydroureter, or calculi seen. No perinephric stranding. BLADDER: Unremarkable. GASTROINTESTINAL TRACT: Stomach is nondistended limiting evaluation. No dilated small or large bowel loops. Nonobstructive bowel gas pattern. Small-moderate volume stool in the large colon. No colonic inflammatory changes seen. Appendix appears unremarkable. No free fluid. No free air. ABDOMINAL WALL: Small fat-containing umbilical hernia. LYMPH NODES: No pathologically enlarged lymph nodes. VASCULAR: Normal caliber aorta. PELVIC VISCERA: IUD in the uterus OSSEOUS STRUCTURES: Multilevel degenerative changes in the spine. CT/CT abdomen pelvis w IV con IMPRESSION: 1. Appendix appears unremarkable without CT evidence of inflammatory changes. 2. No acute intra-abdominal findings otherwise identified. Etiology of the patient's symptoms has not been determined by CT. Clinically correlate. Follow-up imaging for reassessment as clinically warranted. 3. Small-moderate volume stool in the large colon. 4. Hepatomegaly. Fleischner guidelines were followed. Electronically signed by: Isidoro Sidhu MD 06/17/2024 12:23 PM EDT
[2024-06-17 07:01] VITALS: BP 143/83; PULSE 73; RESP 18; TEMP 36.4; O2SAT 100; BMI 25.1
--- NOTE | 2024-06-17 07:48 | ED.GENADULT ---
HPI - General Adult General Chief complaint: Abdominal Pain Stated complaint: constipation Time Seen by Provider: 06/17/24 07:48 History of Present Illness ED Provider: Tori PARK narrative: The patient is a 53-year-old woman who came to the emergency room today because of abdominal discomfort that she thinks might be related to constipation. She says she has not had a bowel movement for 7 or 8 days. She says that over the last 2 years she frequently has rabbit pellet like stools but has never been this long without having any bowel movements at all. No definite fevers. Possibly some mild nausea. She has tried [id number] laxative such as magnesium citrate. Yesterday she tried an enema. Today she had worsening discomfort in the abdomen and came to the emergency room for evaluation. She has no abdominal surgical history. Related Data Home Medications ?Medication ?Instructions ?Recorded ?Confirmed buspirone 5 mg tablet 5 mg PO TID 07/06/23 06/03/24 Previous Rx's ?Medication ?Instructions ?Recorded magnesium oxide 400 mg PO DAILY #30 tabs 02/08/22 albuterol sulfate 90 mcg/actuation 2 inh inhalation Q4-6H PRN 05/19/24 breath activated powder inhaler shortness of breath or wheezing #1 ea carbamide peroxide 6.5 % ear drops 5 drp otic (ears) Q12H 4 days #15 06/03/24 (Debrox) mL lorazepam 0.5 mg tablet 0.5 mg PO BEDTIME PRN anxiety #30 06/03/24 tabs Allergies Allergy/AdvReac Type Severity Reaction Status Date / Time amoxicillin Allergy Unknown shortness Verified 06/17/24 07:03 of breath oseltamivir AdvReac Unknown Diarrhea Verified 06/17/24 07:03 Review of Systems Review of Systems: Yes all other systems are reviewed and are negative PMFSH Past Medical History Surgical History No pertinent past surgical history Social History Social History Housing: Other Unable to assess alcohol history related to: Unknown Patient Tobacco Use Status: Former Tobacco user Cigarettes Per Day: 6 Smoked in Last 30 Days: No e-Cigarette/Vaping Use: Never Used Use of substances other than those prescribed or required for medical reasons: No Advance Directives: No Advance Directives Information Provided: Yes Do you have a plan to hurt others: No Plan service: No Current occupational status: employed Cognitive needs: No Hearing needs: No Vision needs: Yes Physical Exam ED Vital Signs: Vital Signs - 24 hr 06/17/24 07:01 06/17/24 09:35 06/17/24 13:01 Temperature 97.6 F 97.6 F Pulse Rate 73 76 66 Respiratory Rate 18 18 14 Blood Pressure 143/83 H 134/76 134/64 Pulse Oximetry 100 97 100 Oxygen Delivery Method Room Air Room Air Room Air BMI result Body Mass Index 25.1 Const Other: The patient is awake, alert, pleasant, cooperative. Orientation/consciousness: patient oriented x3 HENMT Head: Yes normal to inspection Face and sinus: Yes normal facial exam Mouth: Normal oral and palatal mucosa present and moist mucous membranes Eyes General: appearance normal, both eyes and all related structures Neck Neck: Yes full ROM Resp Effort & Inspection: normal respiratory effort Auscultation: clear to auscultation bilaterally Cardio Rate: regular rate Rhythm: regular rhythm Heart sounds: S1 normal heart sound present and S2 normal heart sound present GI Other: The patient seemed to be tender in the right upper and lower quadrants. She does not seem to have left-sided tenderness. She seems mostly tender in the right lower quadrant. Skin General skin exam: no rashes or lesions noted Neuro General: patient oriented x3 Cognition (Neuro): normal cognition Motor exam (neuro): 5/5 motor strength present throughout Extrem Other: No peripheral edema Medications Administered Discontinued Medications Generic Name Dose Route Start Last Admin Trade Name Freq PRN Reason Stop Dose Admin Sodium Chloride 1,000 mls @ 999 mls/hr 06/17/24 08:00 06/17/24 11:02 Ns IV 06/17/24 09:00 Infused .Q1H1M JACQUIE Infusion Iohexol 85 ml 06/17/24 11:30 06/17/24 11:31 Iohexol 350 Mg/Ml 100 Ml Infus..Btl IV 06/17/24 11:31 85 ml ONCE ONE Administration Ketorolac Tromethamine 10 mg 06/17/24 11:52 06/17/24 12:05 Ketorolac Tromethamine 15 Mg/Ml Vial IVPUSH 06/17/24 11:53 10 mg ONCE ONE Administration Polyethylene Glycol 17 gm 06/17/24 12:32 06/17/24 12:57 Polyethylene Glycol 3350 17 Gm Powd.Pack PO 06/17/24 12:33 17 gm ONCE ONE Administration Medical Decision Making Medical Decision Making [facility] Narrative: The patient is a 53-year-old woman who was concerned that she has not had a bowel movement for 6 or 7 days. She has some abdominal discomfort and some abdominal tenderness. A CT scan of the abdomen and pelvis does not show any significant signs of constipation nor does it show any significant alternate pathology. Labs are unremarkable. I explained to the patient that she did not seem significantly constipated. She seemed puzzled by this. In any event she seems well enough for outpatient management. She was discharged to follow up with her PCP. Lab Data 06/17/24 08:36 06/17/24 10:14 Labs: Lab Results 06/17/24 06/17/24 06/17/24 Range/Units 08:03 08:36 10:14 WBC 5.5 (4.8-10.8) X10*3/uL RBC 4.30 (4.20-5.50) X10*6/uL Hgb 13.1 (12.0-16.0) g/dl Hct 39.5 (37.0-47.0) % MCV 91.9 (80.0-98.0) fL MCH 30.5 (27.0-33.0) pg MCHC 33.2 (31.0-35.0) g/dl RDW 12.7 (11.0-16.0) % Plt Count 206 (160-400) X10*3/uL MPV 9.3 L (9.4-12.3) fL Immature Gran % (Auto) 0.4 (0.0-0.4) % Neut % (Auto) 66.8 (45-73) % Lymph % (Auto) 20.6 (20-40) % [place] % (Auto) 8.0 (2-11) % Eos % (Auto) 3.3 (0-4) % Baso % (Auto) 0.9 (0-2) % Lymph # (Auto) 1.1 L (1.2-4.9) X10*3/uL [place] # (Auto) 0.4 (0.1-1.2) X10*3/uL Eos # (Auto) 0.2 (0.0-0.4) X10*3/uL Baso # (Auto) 0.1 (0.0-0.2) X10*3/uL Abs Immat Gran (auto) 0.02 (0.00-0.03) X10*3/uL Absolute Neuts (auto) 3.7 (2.0-8.3) x10*3/uL Absolute Nucleated RBC 0.000 (0.0-0.012) X10*3/uL Nucleated RBC % (auto) 0.0 (0.0-0.2) /100WBC Sodium 143 (135-145) mmol/L Potassium 4.9 D (3.3-5.1) mmol/L Chloride 112 H (96-108) mmol/L Carbon Dioxide 25 (22-29) mmol/L Anion Gap 11 L (12-20) BUN 9 (9-16) mg/dL Creatinine 0.73 (0.5-1.4) mg/dL Estim Creat Clear Calc 98.4 Estimated GFR > 60 Random Glucose 93 (60-115) mg/dL Calcium 9.5 D (8.4-10.2) mg/dL Total Bilirubin 0.6 (0.0-1.0) mg/dL Direct Bilirubin 0.1 (0.0-0.5) mg/dL AST 20 (5-31) U/L ALT 15 (0-31) U/L Alkaline Phosphatase 52 (39-117) U/L C-Reactive Protein 0.13 (< or = 0.50) mg/dL Total Protein 6.1 L (6.5-8.0) g/dL Albumin 3.8 (3.5-5.0) g/dL Beta HCG, Quant < 2 mIU/mL Urine Color Yellow Urine Appearance Clear Urine pH 5.5 (5.0-9.0) Ur Specific [place] 1.010 (1.005-1.025) Urine Protein Negative (Neg-Trace) mg/dL Urine Glucose (UA) Negative (Negative) mg/dL Urine Ketones Negative (Negative) mg/dL Urine Blood Trace H (Negative) Urine Nitrite Negative (Negative) Ur Leukocyte Esterase Negative (Negative) Urine RBC 0-2 (0-2) /HPF Urine WBC 0-5 (0-5) /HPF Ur Squamous Epith Cells 0-2 (0-2) /HPF Urine Bacteria None Seen (None Seen) Hyaline Casts 0-2 (0-2) /LPF Discharge Plan Discharge Clinical Impression: Abdominal discomfort Patient Disposition: Home, Self-Care Additional Instructions: Your CT scan is not showing any concerning process. Additionally it is not showing any obvious signs of significant constipation. Your blood testing is also reassuring. I think it would be reasonable for you to continue MiraLax (polyethylene glycol) once a day for the next few days until you feel you were definitely passing some stool. You may try simethicone as well. Please keep your appointment with your regular doctor next week. Return to the emergency room if significantly worse. Prescriptions: No Action albuterol sulfate 90 mcg/actuation aerosol powdr breath activated 2 inh inhalation Q4-6H PRN (Reason: shortness of breath or wheezing) Qty: 1 0RF buspirone 5 mg tablet 5 mg PO TID magnesium oxide 400 mg magnesium tablet 400 mg PO DAILY Qty: 30 6RF lorazepam 0.5 mg tablet 0.5 mg PO BEDTIME PRN (Reason: anxiety) Qty: 30 0RF Debrox 6.5 % drops 5 drp otic (ears) Q12H 4 Days Qty: 15 0RF Referrals: Jes Machuca MD [Primary Care Provider] - (Abdominal pains, decreased stooling frequency) Interventions: ED Discharge Assessment Last Done: 06/17/24 13:01 Discharge Date/Time: 06/17/24 13:13 Print Language: Frisian
[2024-06-17] MEDS: 0.9 % Sodium Chloride 1,000 ML 999 ML IV (08:13)
[2024-06-17 08:17] LABS: Appearance Urine Clear; Color Urine Yellow; Glucose Urine UA Negative (Negative); Leukocyte Esterase Urine Negative (Negative); Nitrite Urine Negative (Negative); PH 5.5 (5.0-9.0); UMIC TRIGGER UACC YES; Urine Blood Trace (Negative); Urine Ketones Negative (Negative); Urine Protein Negative (Neg-Trace)
[2024-06-17 08:20] LABS: Bacteria Urine None Seen (None Seen); Hyaline Casts Urine 0-2 /LPF (0-2); RBC Urine 0-2 /HPF (0-2); Squamous Epithelial Cell Urine 0-2 /HPF (0-2); WBC Urine 0-5 /HPF (0-5)
[2024-06-17 08:43] LABS: Basophils Absolute Auto 0.1 X10*3/uL (0.0-0.2); Basophils Percent Auto 0.9 % (0-2); Eosinophils Absolute Auto 0.2 X10*3/uL (0.0-0.4); Eosinophils Percent Auto 3.3 % (0-4); Hematocrit 39.5 % (37.0-47.0); Hemoglobin 13.1 g/dl (12.0-16.0); Imm Gran Abs Auto 0.02 X10*3/uL (0.00-0.03); Imm Gran Pct Auto 0.4 % (0.0-0.4); Lymphocytes Absolute Auto 1.1 X10*3/uL (1.2-4.9); Lymphocytes Percent Auto 20.6 % (20-40); Mean Corpuscular HGB Conc 33.2 g/dl (31.0-35.0); Mean Corpuscular Hemoglobin 30.5 pg (27.0-33.0); Mean Corpuscular Volume 91.9 fL (80.0-98.0); Mean Platelet Volume 9.3 fL (9.4-12.3); Monocytes Absolute Auto 0.4 X10*3/uL (0.1-1.2); Neutrophils Absolute Auto 3.7 x10*3/uL (2.0-8.3); Neutrophils Percent Auto 66.8 % (45-73); Platelet Count 206 X10*3/uL (160-400); Red Cell Distribution Width 12.7 % (11.0-16.0); White Blood Count 5.5 X10*3/uL (4.8-10.8)
[2024-06-17 08:47] LABS: MANUAL DIFF FLAG NO
[2024-06-17 09:35] VITALS: BP 134/76; PULSE 76; RESP 18; O2SAT 97
[2024-06-17 10:47] LABS: Alanine Aminotransferase 15 U/L (0-31); Albumin Level 3.8 g/dL (3.5-5.0); Alkaline Phosphatase 52 U/L (39-117); Anion Gap 11 (12-20); Aspartate Amino Transferase 20 U/L (5-31); Bilirubin Direct 0.1 mg/dL (0.0-0.5); Bilirubin Total 0.6 mg/dL (0.0-1.0); Blood Urea Nitrogen 9 mg/dL (9-16); C Reactive Protein 0.13 mg/dL (< or = 0.50); Calcium 9.5 mg/dL (8.4-10.2); Carbon Dioxide 25 mmol/L (22-29); Chloride 112 mmol/L (96-108); Creatinine Clr Calc Pharmacy 98.4; Estimated Glomerular Filt Rate > 60; Glucose Random 93 mg/dL (60-115); HCG Quantitative < 2 mIU/mL; Potassium 4.9 mmol/L (3.3-5.1); Sodium 143 mmol/L (135-145); Total Protein 6.1 g/dL (6.5-8.0)
[2024-06-17] MEDS: iohexoL 350 MG/ML 100 ML INFUS..BTL 85 ML IV (11:31)
[2024-06-17] MEDS: Ketorolac Tromethamine 15 MG/ML VIAL 10 MG IVPUSH (12:05)
[2024-06-17] MEDS: polyethylene glycoL 3350 17 GM POWD.PACK PO (12:57)
[2024-06-17 13:01] VITALS: BP 134/64; PULSE 66; RESP 14; TEMP 36.4; O2SAT 100
== END 2024-06-17 13:13 | disposition home or self-care (01) ==
PROVIDERS: Emergency Provider Emergency Medicine; PCP Internal Medicine
DX: R10.31 Right lower quadrant pain (principal); Z87.891 Personal history of nicotine dependence; Z79.899 Other long term (current) drug therapy
CPT/HCPCS: 36415; 74177; 80048; 80076; 81001; 84702; 85025; 86140; 96361; 96374; 99284; J1885; Q9967

== ENCOUNTER 2024-06-25 08:39 | Outpatient (AMB) | payer BC, SELFPAY ==
[2024-06-25 08:44] VITALS: BP 122/82; PULSE 90; O2SAT 98; BMI 26.9
--- NOTE | 2024-06-25 08:44 | MHC.PC.OV ---
Vital Signs 06/25/24 08:44 Height 5 ft 11 in Weight 193 lb 2 oz BMI 26.9 BP 122/82 Blood Pressure Location Rt brachial Position Sitting Pulse 90 Pulse Source Pulse Oximeter Pulse Oximetry (%) 98 Oxygen Delivery Method Room Air Intake Visit Reasons: 3 week follow up wax removal Allergies amoxicillin Allergy (Unknown, Verified 06/25/24 08:47) shortness of breath oseltamivir Adverse Reaction (Unknown, Verified 06/25/24 08:47) Diarrhea Medication List - Last Reconciled 06/25/24 by Jes Machuca MD albuterol sulfate 90 mcg/actuation 2 inhalations inhalation Q4-6H PRN buspirone 5 mg PO TID carbamide peroxide 6.5% (Debrox) 5 drps otic (ears) Q12H 4 days lorazepam 0.5 mg PO BEDTIME PRN magnesium oxide 400 mg PO DAILY Tobacco use date assessed: 06/25/24 Dental Screening Dental Screen Date: 06/25/24 Did you have a dental visit in the last 12 months?: Yes Did you have a dental problem in the last 6 months where you did not have access to dental care?: No Was dental information given to patient?: Patient has dentist HPI 3 week follow up wax removal HPI Details 53-year-old female came in today to talk about constipation She was in ER few days ago as she has not had bowel movement in 7 days She had workup done and then was discharged Patient says that she has a long history of constipation She was taking MiraLax and probiotic but has not had bowel movement in 7 days Patient says usually MiraLax work I have told her to start taking Senokot S2 tablets at night, if that does not work add Dulcolax, if that does not work add MiraLax and glycerin suppositories She is also due for colonoscopy I will book the appointment for that Patient also want to talk about her sleep, she says that sometimes she wakes up from her sleep in tear She feels as if her heart. She is afraid to take medication for sleep thinking that she will not be able to wake up Patient is feeling distress and afraid to sleep because of that I will be referring her to sleep specialist for further management She did try to use wax softening drops Right ear wax is still hard, we were not able to remove that Left ear is clear now [facility] Surgical History No pertinent past surgical history Social History Housing: Other Unable to assess alcohol history related to: Unknown Patient Tobacco Use Status: Former Tobacco user Cigarettes Per Day: 6 e-Cigarette/Vaping Use: Never Used service: No Current occupational status: employed Cognitive needs: No Hearing needs: No Vision needs: Yes Questionnaire PHQ-9 Over the last 2 weeks, how often have you been bothered by any of the following problems? 1. Little interest or pleasure in doing things: several days 2. Feeling down, depressed, or hopeless: several days 3. Trouble falling or staying asleep, or sleeping too much: more than half the days 4. Feeling tired or having little energy: several days 5. Poor appetite or overeating: not at all 6. Feeling bad about yourself - or that you are a failure or have let yourself or your family down: not at all 7. Trouble concentrating on things, such as reading the newspaper or watching television: not at all 8. Moving or speaking so slowly that other people could have noticed. Or the opposite - being so fidgety or restless that you have been moving around a lot more than usual: not at all 9. Thoughts that you would be better off or of hurting yourself in some way: not at all Total score: 5 Depression Screening Interpretation: Negative Depression Screening Done: Yes 38584 - PHQ-9 Billing: Yes Source: Developed by Drs. Soto Juarez, Nica Etienne, Feng Goodrich and colleagues, with an educational dixon from [employer]. Thrive Questionnaire Date Thrive assessed: 06/25/24 I am a: Patient What is your living situation today?: I have a steady place to live Within the past 12 months, did the food you bought not last and you didn't have the money to get more?: Never true Within the past 12 months, did you worry whether your food would run out before you got money to buy more?: Never true Do you have trouble paying for medicines?: No Do you have trouble getting transportation to medical appointments?: No Do you have trouble paying your heating and electricity bill?: No Do you have trouble taking care of your child, family member or friend?: No Do you have trouble with day-to-day activities such as bathing, preparing meals, shopping, managing finances, etc.?: No Are you currently unemployed and looking for a job?: No Are you interested in more education?: No Please select the resources that you would like help with: None Currently or been in a relationship where the following occur: No concerns reported THRIVE Score: 0 AUDIT C Alcohol Use Questionnaire (AUDIT-C) 1. How often do you have a drink containing alcohol?: 2-4 times a month 2. How many drinks containing alcohol do you have on a typical day when you are drinking?: 1 or 2 3. How often do you have six or more drinks on one occasion?: Never Total Score: 2 Score Reviewed/Action Taken: Yes RONALD-7 AMB Questionnaire RONALD-7 Date RONALD - 7 assessed: 06/25/24 Feeling nervous, anxious, or on edge: 1 = Several days Not being able to stop or control worryin = Several days Worrying too much about different things: 2 = More than half the days Trouble relaxin = Several days Being so restless that it is hard to sit still: 0 = Not at all Becoming easily annoyed or irritable: 1 = Several days Feeling afraid as if something awful might happen: 0 = Not at all Total RONALD-7 score (0-4 normal; 5-9 mild; 10-14 moderate; 15-21 severe): 6 Source: Developed by Drs. Soto Juarez, Nica Etienne, Feng Goodrich and colleagues, with an educational dixon from [employer]. RONALD-7 Assessment Billing RONALD-7 Assessment Tool: RONALD-7 Assessment 12606 Review of Systems Const Denies chills and Denies fever(s) ENT Denies epistaxis and Denies nasal discharge Card Denies chest pain Resp Denies chest congestion, Denies cough and Denies hemoptysis GI Denies diarrhea and Denies nausea Skin/Breast Denies rash Neuro Reports no additional complaints Psych Reports no additional complaints Endo Reports no additional complaints Physical exam (Primary Care) Vital Signs: Last Vital Signs Pulse 90 06/25/24 08:44 BP 122/82 06/25/24 08:44 Pulse Ox 98 06/25/24 08:44 Oxygen Delivery Method Room Air 06/25/24 08:44 BMI result Body Mass Index 26.9 Tobacco/Smoking Status: Tobacco use Status Tobacco use date assessed 06/25/24 06/25/24 08:47 Patient Tobacco Use Status Former Tobacco user 06/25/24 08:45 e-Cigarette/Vaping Use Never Used 06/25/24 08:45 PHQ-9: PHQ-9 Score PHQ-9: Total score 5 06/25/24 09:03 Depression Screening Interpretation: Negative Thrive Assessment: Date of Thrive Assessment Date Thrive assessed 06/25/24 06/25/24 08:47 Currently or been in a relationship where the following occur: No concerns reported Const General: cooperative, comfortable and no acute distress Orientation/consciousness: patient oriented x3 HENMT Other: Right ear wax is hard Left ear wax soft Head: Yes normocephalic Eyes General: appearance normal, both eyes and all related structures Neck Neck: Yes supple Resp Effort & Inspection: normal respiratory effort, no cough and no stridor Cardio Rhythm: regular rhythm Heart sounds: S1 normal heart sound present and S2 normal heart sound present Skin General skin exam: turgor normal Neuro General: patient oriented x3, tone normal and moves all extremities Extrem Right lower extremity: no edema Left lower extremity: no edema Office Procedures Cerumen Removal From which ear canal was the cerumen removed: bilateral Removal: irrigation Notes: patient tolerated procedure well, no complications and ear canal clear [id number] Irrigation/Lavage Coding Level of Care Code Est Pt Level 5 (05092) Diagnoses 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 Night sweats R61 Vivid dream R68.89 Panic anxiety syndrome F41.0 Difficulty sleeping G47.9 Major depressive disorder, severe F32.2 Impacted cerumen, bilateral H61.23 Constipation by delayed colonic transit K59.01 CPT Codes Office Procedure - CPT: 55601-Ffz Irrigation/Lavage ([id number]) Additional Codes RONALD-7 Assessment Billing - RONALD-7 Assessment Tool: RONALD-7 Assessment 32272 ([id number]) Assessment & Plan Assessment & Plan (1) 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 - Nightmare disorder Category: Medical (2) Night sweats: Code(s): R61 - Generalized hyperhidrosis Category: Medical (3) Vivid dream: Code(s): R68.89 - Other general symptoms and signs Category: Medical (4) Panic anxiety syndrome: Code(s): F41.0 - Panic disorder [episodic paroxysmal anxiety] Category: Medical (5) Difficulty sleeping: Code(s): G47.9 - Sleep disorder, unspecified Category: Medical (6) Major depressive disorder, severe: Code(s): F32.2 - Major depressive disorder, single episode, severe without psychotic features Category: Medical (7) Impacted cerumen, bilateral: Comment: Patient will continue ear wax removal drops right ear Code(s): H61.23 - Impacted cerumen, bilateral Category: Medical (8) Constipation by delayed colonic transit: Code(s): K59.01 - Slow transit constipation Category: Medical Plan 53-year-old female came in today to talk about constipation She was in ER few days ago as she has not had bowel movement in 7 days She had workup done and then was discharged Patient says that she has a long history of constipation She was taking MiraLax and probiotic but has not had bowel movement in 7 days Patient says usually MiraLax work I have told her to start taking Senokot S2 tablets at night, if that does not work add Dulcolax, if that does not work add MiraLax and glycerin suppositories She is also due for colonoscopy I will book the appointment for that Patient also want to talk about her sleep, she says that sometimes she wakes up from her sleep in tear She feels as if her heart. She is afraid to take medication for sleep thinking that she will not be able to wake up Patient is feeling distress and afraid to sleep because of that I will be referring her to sleep specialist for further management She did try to use wax softening drops Right ear wax is still hard, we were not able to remove that Left ear is clear now 45 minute appointment including [id number] ear irrigation, coordination of care Orders: Referrals Sleep Medicine Referral F51.5 - Nightmare disorder, G47.9 - Sleep disorder, unspecified, R68.89 - Other general symptoms and signs Open Access Screening Colonoscopy Referral Z12.11 - Encounter for screening for malignant neoplasm of colon, Z12.12 - Encounter for screening for malignant neoplasm of rectum Medications: Refilled carbamide peroxide 6.5% (Debrox) 5 drps otic (ears) Q12H 15 mL 0RF 4 days
== END 2024-06-25 09:41 | disposition home or self-care (01) ==
PROVIDERS: PCP Internal Medicine; Visit Provider Internal Medicine
DX: F51.5 Nightmare disorder (principal); F32.2 Major depressive disorder, single episode, severe without psychotic features; H61.23 Impacted cerumen, bilateral; R61 Generalized hyperhidrosis; R68.89 Other general symptoms and signs; F41.0 Panic disorder [episodic paroxysmal anxiety]; G47.9 Sleep disorder, unspecified; K59.01 Slow transit constipation

== ENCOUNTER → 2024-06-25 08:39 | Outpatient (BNVA) | payer BC, SELFPAY | PROVIDERS: PCP Internal Medicine; Visit Provider Internal Medicine | DX: H61.23 Impacted cerumen, bilateral (principal); F51.5 Nightmare disorder; R61 Generalized hyperhidrosis; R68.89 Other general symptoms and signs; F41.0 Panic disorder [episodic paroxysmal anxiety]; G47.9 Sleep disorder, unspecified; F32.2 Major depressive disorder, single episode, severe without psychotic features; K59.01 Slow transit constipation | CPT/HCPCS: 69209; 96127 ==

== ENCOUNTER 2024-07-02 01:12 | Emergency (ER) | payer BC, SELFPAY ==
[2024-07-02 01:17] VITALS: BP 130/90; PULSE 82; O2SAT 98
[2024-07-02 01:18] VITALS: BP 141/97; PULSE 100; RESP 28; TEMP 36.8; O2SAT 100; BMI 25.9
--- NOTE | 2024-07-02 01:21 | ECG_ITS ---
Test Reason : ABD PAIN Blood Pressure : / mmHG Vent. Rate : 073 BPM Atrial Rate : 073 BPM P-R Int : 154 ms QRS Dur : 076 ms QT Int : 384 ms P-R-T Axes : 067 048 052 degrees QTc Int : 423 ms Artifact in tracing Normal sinus rhythm Normal ECG When compared with ECG of 19-MAY-2024 12:21, Nonspecific T wave abnormality no longer evident in Anterior leads Referred By: Lulu Ferrari Electronically Signed By:SHEILA MARCANO
--- NOTE | 2024-07-02 01:31 | ED.ABDPAIN ---
HPI - Abdominal Pain General Chief Complaint: Abdominal Pain Stated Complaint: ABDOMINAL PAIN Time Seen by Provider: 07/02/24 01:26 Source: patient and EMS Mode of arrival: EMS Limitations: no limitations History of Present Illness ED Provider: ALLY HPI narrative: 53 yo female with PMH of anxiety, constipation, depression, migraines here with 6 days of epigastric pain and LUQ pain today started to have n/v she notes she is having normal BMs and passing flatus. She denies fevers or diarrhea. She has no sick contacts. She has never had abdominal surgery. She notes she has never had pain like this before, no trauma, no food triggers. MD elicited complaint: abdominal pain Pertinent past history: none Onset (ago): day(s) (6) Pain Consistency: intermittent Location: epigastric and LUQ Severity: severe Quality: stabbing and aching Radiation: none Migration to: no migration Exacerbating factors: eating and movement Relieving factors: nothing Associated symptoms: nausea and vomiting Related Data Home Medications ?Medication ?Instructions ?Recorded ?Confirmed buspirone 5 mg tablet 5 mg PO TID 07/06/23 06/25/24 Previous Rx's ?Medication ?Instructions ?Recorded magnesium oxide 400 mg PO DAILY #30 tabs 02/08/22 albuterol sulfate 90 mcg/actuation 2 inh inhalation Q4-6H PRN 05/19/24 breath activated powder inhaler shortness of breath or wheezing #1 ea lorazepam 0.5 mg tablet 0.5 mg PO BEDTIME PRN anxiety #30 06/03/24 tabs carbamide peroxide 6.5 % ear drops 5 drp otic (ears) Q12H 4 days #15 06/25/24 (Debrox) mL Allergies Allergy/AdvReac Type Severity Reaction Status Date / Time amoxicillin Allergy Unknown shortness Verified 07/02/24 01:19 of breath oseltamivir AdvReac Unknown Diarrhea Verified 07/02/24 01:19 Review of Systems Review of Systems Constitutional : No Weight loss, No Fever, No Chills ENT/Mouth : No sore throat, No Rhinorrhea Eyes: No Swelling, No Redness Cardiovascular : No Chest Pain, No SOB, NoEdema Respiratory : No Cough, No Sputum, No Wheezing Gastrointestinal : Positive Nausea, Positive Vomiting, no Diarrhea, positive abdominal Pain, No Hematochezia, No Melena Genitourinary : No Dysuria, No Urinary Frequency, No Hematuria, No Urgency Musculoskeletal : No joint pain, No Myalgias, No Joint Swelling Skin : No Skin Lesions, No rash Neuro : No Weakness, No Numbness, No Dizziness, No Headache Psych : No Anxiety/Panic, No Depression All other systems reviewed and are negative. [facility] Past Medical History Attestation statement: The following information was validated with the patient. Source: old records reviewed Medical History Dream anxiety disorder Neck pain on right side Headache Anxiety about health Major depressive disorder, severe Surgical History No pertinent past surgical history Social History Social History Housing: Other Unable to assess alcohol history related to: Unknown Patient Tobacco Use Status: Former Tobacco user Cigarettes Per Day: 6 e-Cigarette/Vaping Use: Never Used service: No Current occupational status: employed Cognitive needs: No Hearing needs: No Vision needs: Yes Physical Exam ED Vital Signs: Vital Signs - 24 hr 07/02/24 01:18 Temperature 98.2 F Pulse Rate 100 Respiratory Rate 28 H Blood Pressure 141/97 H Pulse Oximetry 100 Oxygen Delivery Method Room Air BMI result Body Mass Index 25.9 Appearance: Alert. Oriented X3. anxious crying hyperventilating mild acute distress. Eyes: Pupils equal, round and reactive to light. ENT: Pharynx normal. Neck: Normal inspection. Neck supple. CVS: Normal heart rate and rhythm. Pulses normal. Respiratory: No respiratory distress. Breath sounds normal. Abdomen: Soft and ttp in epigastric area Skin: Skin warm and dry. Normal skin color. Extremities: No lower extremity edema. Neuro: Oriented X 3. No motor deficit. No sensory deficit. Course Course Course Narrative: signed out to Dr. Caicedo Medical Decision Making Medical Decision Making MDM Narrative: 53 yo female with PMH of anxiety, constipation, depression, migraines here with c/o abdominal pain and n/v normal BM and passing flatus at this time she is very anxious and hyperventilating - will obtain labs, give IV ativan and droperidol - pending labs and improvement will hold off imaging. Possible gastritis, anxiety, constipation Differential Diagnosis Differential Diagnoses: The differential diagnosis associated with the presentation includes gastritis, anxiety, constipation Admission/Observation Consideration of admission/observation: Escalation of care including admission/observation considered Lab Data MDM Lab Attestation statement: I reviewed the patient's lab results. Independent Historian Clinical information obtained from an independent historian. History obtained from or confirmed by: EMS External Record Review External record reviewed: Inpatient record Discharge Plan Discharge Clinical Impression: Abdominal pain Patient Disposition: Still a Patient Prescriptions: No Action albuterol sulfate 90 mcg/actuation aerosol powdr breath activated 2 inh inhalation Q4-6H PRN (Reason: shortness of breath or wheezing) Qty: 1 0RF buspirone 5 mg tablet 5 mg PO TID magnesium oxide 400 mg magnesium tablet 400 mg PO DAILY Qty: 30 6RF lorazepam 0.5 mg tablet 0.5 mg PO BEDTIME PRN (Reason: anxiety) Qty: 30 0RF Debrox 6.5 % drops 5 drp otic (ears) Q12H 4 Days Qty: 15 0RF Print Language: Romanian
[2024-07-02 01:44] LABS: MANUAL DIFF FLAG NO
[2024-07-02] MEDS: droPERidol 5 MG/2 ML VIAL 1.25 MG IVPUSH (01:49)
[2024-07-02] MEDS: LORazepam 2 MG/ML VIAL 1 MG IVPUSH (01:49)
[2024-07-02 01:54] LABS: Basophils Absolute Auto 0.1 X10*3/uL (0.0-0.2); Basophils Percent Auto 1.1 % (0-2); Eosinophils Absolute Auto 0.3 X10*3/uL (0.0-0.4); Eosinophils Percent Auto 3.4 % (0-4); Hematocrit 41.4 % (37.0-47.0); Hemoglobin 14.3 g/dl (12.0-16.0); Imm Gran Abs Auto 0.03 X10*3/uL (0.00-0.03); Imm Gran Pct Auto 0.4 % (0.0-0.4); Lymphocytes Absolute Auto 2.9 X10*3/uL (1.2-4.9); Lymphocytes Percent Auto 35.9 % (20-40); Mean Corpuscular HGB Conc 34.5 g/dl (31.0-35.0); Mean Corpuscular Hemoglobin 29.9 pg (27.0-33.0); Mean Corpuscular Volume 86.6 fL (80.0-98.0); Mean Platelet Volume 9.6 fL (9.4-12.3); Monocytes Absolute Auto 0.7 X10*3/uL (0.1-1.2); Neutrophils Absolute Auto 4.1 x10*3/uL (2.0-8.3); Neutrophils Percent Auto 50.2 % (45-73); Platelet Count 296 X10*3/uL (160-400); Red Blood Count 4.78 X10*6/uL (4.20-5.50); Red Cell Distribution Width 12.4 % (11.0-16.0); White Blood Count 8.2 X10*3/uL (4.8-10.8)
[2024-07-02 02:00] VITALS: BP 131/69; PULSE 64; RESP 16; TEMP 36.4; O2SAT 98
[2024-07-02 02:06] LABS: Alanine Aminotransferase 17 U/L (0-31); Albumin Level 4.3 g/dL (3.5-5.0); Alkaline Phosphatase 58 U/L (39-117); Anion Gap 15 (12-20); Aspartate Amino Transferase 20 U/L (5-31); Bilirubin Direct 0.2 mg/dL (0.0-0.5); Bilirubin Total 0.6 mg/dL (0.0-1.0); Blood Urea Nitrogen 12 mg/dL (9-16); Carbon Dioxide 22 mmol/L (22-29); Chloride 109 mmol/L (96-108); Creatinine Clr Calc Pharmacy 87.6; Estimated Glomerular Filt Rate > 60; Glucose Random 102 mg/dL (60-115); Lipase 24 U/L (8-78); Magnesium 2.1 mg/dL (1.6-2.6); Sodium 142 mmol/L (135-145)
[2024-07-02 02:17] LABS: Troponin-I High Sensitivity < 2.7 ng/L (<3.5-17.0)
[2024-07-02 03:52] VITALS: BP 131/69; PULSE 64; RESP 16; TEMP 36.4; O2SAT 98
== END 2024-07-02 03:56 | disposition home or self-care (01) ==
PROVIDERS: Emergency Medicine; Emergency Provider Emergency Medicine; PCP Internal Medicine
DX: R10.13 Epigastric pain (principal); R11.2 Nausea with vomiting, unspecified; Z79.899 Other long term (current) drug therapy
CPT/HCPCS: 36415; 80048; 80076; 83690; 83735; 84484; 85025; 93005; 96374; 96375; 99284; 99285; J1790; J2060

== ENCOUNTER → 2024-07-02 01:21 | Outpatient (BNV) | payer BC, SELFPAY | PROVIDERS: Emergency Provider Emergency Medicine; PCP Internal Medicine; Visit Provider Internal Medicine | DX: R10.9 Unspecified abdominal pain (principal) | CPT/HCPCS: 93010 ==

== ENCOUNTER 2024-07-04 08:05 | Outpatient (AMB) | payer BC, SELFPAY ==
[2024-07-04 08:07] VITALS: BP 168/100; PULSE 86; O2SAT 98; BMI 26.8
--- NOTE | 2024-07-04 08:07 | AM.OFFWIN_ITS ---
Intake Vital Signs 07/04/24 08:07 Height 5 ft 11 in Weight 192 lb BMI 26.8 BP 168/100 H Blood Pressure Location Lt brachial Position Sitting Pulse 86 Pulse Source Pulse Oximeter Pulse Oximetry (%) 98 Intake Visit Reasons: EP Abd pain since Sunday Intake Note: Patient here for abdominal pain since Sunday. She states she has been having issues with constipation. Patient Tobacco Use Status: Former Tobacco user Allergies amoxicillin Allergy (Unknown, Verified 07/04/24 08:22) shortness of breath oseltamivir Adverse Reaction (Unknown, Verified 07/04/24 08:22) Diarrhea Do you need a note to return to daycare/school/sports/work: No HPI HPI Comments History of Present Illness Details 53 y/o female patient who presents to [facility] walk [facility] clinic with c/o s evere Abdominal pain associated with constipation. Pt reports any Bowel Movements for few days. She does admit to passing gas frequently, but c/o bloating and feeling abdominal distention. She was seen yesterday at ED and was given Laxatives. She saw PCP who referred her to GI, waiting for an appointment. [facility] Medical History Dream anxiety disorder Neck pain on right side Headache Anxiety about health Major depressive disorder, severe Surgical History No pertinent past surgical history Social History Housing: Other Unable to assess alcohol history related to: Unknown Alcohol intake: never Patient Tobacco Use Status: Former Tobacco user Cigarettes Per Day: 6 e-Cigarette/Vaping Use: Never Used service: No Current occupational status: employed Cognitive needs: No Hearing needs: No Vision needs: Yes Review of Systems Const All systems reviewed & are unremarkable except as noted in HPI and below Physical Exam Vital Signs: Last Vital Signs Pulse 86 07/04/24 08:07 BP 168/100 H 07/04/24 08:07 Pulse Ox 98 07/04/24 08:07 BMI result Body Mass Index 26.8 Const General: cooperative and no acute distress; No comfortable Nutritional Appearance: overweight Orientation/consciousness: patient oriented x3 Resp Effort & Inspection: normal respiratory effort Cardio Heart sounds: S1 normal heart sound present and S2 normal heart sound present GI Inspection: Yes distended Palpation (GI): Soft to palpation, not firm, Tenderness to palpation present (GI) (Generalized abdominal tenderness), no guarding and not rigid Auscultation: Hypoactive bowel sounds present Rectal Exam - Female: deferred Neuro General: patient oriented x3, gait normal and moves all extremities Psych Speech and movement: Normal speech and movement present Affect: Labile affect present and Sad affect present Assessment & Plan Assessment & Plan (1) Constipation: Code(s): K59.00 - Constipation, unspecified Qualifiers: Constipation type: slow transit constipation Qualified Code(s): K59.01 - Slow transit constipation Plan: Ordered SennaK and Dulcolax Ordered Linzess Advised to increase water and fiber intake. Advised to f/u with [facility], waiting for an appointment. Medications: New sennosides 17.2 mg PO BEDTIME 60 tabs 0RF K59.01 - Slow transit constipation bisacodyl (Dulcolax (bisacodyl)) 10 mg (2 x 5 mg) PO DAILY 30 tabs 0RF K59.01 - Slow transit constipation linaclotide (Linzess) 72 mcg PO QAM 30 caps 0RF K59.01 - Slow transit constipation Coding Level of Care Code Est Pt Level 3 (41771) Diagnoses Slow transit constipation K59.01 Constipation type: slow transit constipation Time Spent (min) 15
== END 2024-07-04 09:30 | disposition home or self-care (01) ==
PROVIDERS: PCP Internal Medicine; Visit Provider Nurse Practitioner Family
DX: K59.01 Slow transit constipation (principal)

== ENCOUNTER → 2024-07-04 08:05 | Outpatient (BNVA) | payer BC, SELFPAY | PROVIDERS: PCP Internal Medicine; Visit Provider Nurse Practitioner Family ==

== ENCOUNTER 2024-09-26 08:14 | Outpatient (AMB) | payer BC, SELFPAY ==
[2024-09-26 08:18] VITALS: BP 124/90; PULSE 74; TEMP 36.8; O2SAT 98
--- NOTE | 2024-09-26 08:18 | MHC.OFFWIV ---
Intake Vital Signs 09/26/24 08:18 Weight 192 lb BP 124/90 H Blood Pressure Location Rt brachial Position Sitting Pulse 74 Pulse Source Pulse Oximeter Temp 98.2 F Temp Source Oral Pulse Oximetry (%) 98 Oxygen Delivery Method Room Air Intake Visit Reasons: EP RT side ear pain/sore throat Intake Note: Patient here for right sided neck swelling, right ear pain which started around sunday. Patient Tobacco Use Status: Former Tobacco user Allergies amoxicillin Allergy (Unknown, Verified 09/26/24 08:27) shortness of breath oseltamivir Adverse Reaction (Unknown, Verified 09/26/24 08:27) Diarrhea Do you need a note to return to daycare/school/sports/work: No HPI HPI Comments History of Present Illness Details History - The patient is a 54-year-old female presenting with right ear discomfort and facial/neck swelling. - Hfeu-YADCY-44 infection in early May, the patient was treated for an ear infection, which resolved with prescribed medication. - Persistent earwax has been a noted issue, unresponsive to initial attempts at cleaning on previous visit to PCP. - Debrox drops have been utilized with limited success to manage earwax but associated with intermittent auditory disturbances. - Anxiety significantly influences the patient's daily functioning and healthcare access so she hasn't followed up with her PCP yet. - Symptoms including throat obstruction without pain and nighttime thermal discomfort have been reported. - Denies fevers or cough. Physical Exam General: Cooperative, healthy appearing, comfortable and no acute distress Orientation/consciousness: Patient oriented x3 Limitations: No limitations Head: Normal to inspection Ears: Hearing grossly normal bilaterally, external ears normal. Right TM cerumen impaction, post irrigation shows purulent effusion. Left TM small purulent effusion and erythema Nose: Normal external nose present, Normal nares present and No nasal discharge present Face and sinus: Normal facial exam and Yes sinuses nontender Mouth: Normal oral and palatal mucosa present and moist mucous membranes Throat: Yes tonsils normal, Yes uvula midline. Posterior oropharynx erythema Eyes: Appearance normal, both eyes and all related structures Neck: Right side lymph node ttp Respiratory: Normal respiratory effort, able to speak in complete sentences, No cough or congestion, no respiratory distress, not tachypneic, no tripod positioning and no use of accessory muscles Skin: No rashes or lesions noted Neuro: Patient oriented x3 Extremities: Normal to inspection and Yes no clubbing, cyanosis or edema [facility] Medical History Dream anxiety disorder Neck pain on right side Headache Anxiety about health Major depressive disorder, severe Surgical History No pertinent past surgical history Social History Housing: Other Unable to assess alcohol history related to: Unknown Alcohol intake: never Patient Tobacco Use Status: Former Tobacco user Cigarettes Per Day: 6 e-Cigarette/Vaping Use: Never Used service: No Current occupational status: employed Cognitive needs: No Hearing needs: No Vision needs: Yes Review of Systems Const All systems reviewed & are unremarkable except as noted in HPI and below Physical Exam Vital Signs: Last Vital Signs Temp 98.2 F 09/26/24 08:18 Pulse 74 09/26/24 08:18 BP 124/90 H 09/26/24 08:18 Pulse Ox 98 09/26/24 08:18 Oxygen Delivery Method Room Air 09/26/24 08:18 Office Procedures Cerumen Removal From which ear canal was the cerumen removed: right Removal: irrigation Notes: patient tolerated procedure well, no complications and ear canal clear [id number] Irrigation/Lavage Assessment & Plan Assessment & Plan (1) Impacted cerumen of right ear: Code(s): H61.21 - Impacted cerumen, right ear Plan: For managing the acute otitis media and earwax complication, ear was irrigated and cleared of cerumen in antibiotics were sent to her pharmacy. emphasis was placed on ongoing utilization of Debrox drops for maintenance. Sent RX for Flonase. Patient was informed and verbally consented to the use of an ambient scribe for clinic note documentation during this visit (2) Otitis media: Code(s): H66.90 - Otitis media, unspecified, unspecified ear Qualifiers: Otitis media type: suppurative Chronicity: acute Laterality: right Recurrence: recurrent Spontaneous tympanic membrane rupture: without spontaneous rupture Qualified Code(s): H66.004 - Acute suppurative otitis media without spontaneous rupture of ear drum, recurrent, right ear Plan: Left ear appears to have a small infection and the right appears to still have fluid and some infection. We will treat with cefdinir and Flonase. Patient has follow up with her PCP in 2 weeks previously scheduled. Medications: New fluticasone propionate 50 mcg/actuation administer into each nostril 1 spray intranasal Q12H 16 grams 0RF cefdinir 300 mg PO Q12H 10 caps 0RF Coding Level of Care Code Est Pt Level 4 (30429) Diagnoses Impacted cerumen of right ear H61.21 Recurrent acute suppurative otitis media of right ear without spontaneous rupture of tympanic membrane H66.004 Otitis media type: suppurative Chronicity: acute Laterality: right Recurrence: recurrent Spontaneous tympanic membrane rupture: without spontaneous rupture CPT Codes Office Procedure - CPT: 31930-Xrv Irrigation/Lavage ([id number])
--- OUTSIDE RECORDS SUMMARY | 2024-09-26 08:18 | XMS_ITS | Data Portability ---
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 Plan of Treatment Reminders Order Date Submit Date Provider Last Modified By Organization Details Last Modified Time Details Appointments None recorded. Lab urinalysis, dipstick 2022 023 [place] [address] [address], [address] [facility], [place], [address], 3 08:37:38 Referral None recorded. Procedures None recorded. Surgeries None recorded. Imaging None recorded. Medication Orders neomycin-po lymyxin-hyd rocort 3.5 mg-10,000 unit/mL-1 % ear drops,susp [address] [facility]/Pharmacy #[id number], [address] [place], [address], 3 08:15:03 cyclobenzap rine 10 mg tablet 2022 023 [facility]/Pharmacy #[id number], [address] [place], [address], 3 08:37:39 naproxen 500 mg tablet 2022 023 [facility]/Pharmacy #[id number], [address] [place], [address], 3 08:37:39 Patient TargetsNo targets recorded. Patient Instructions Encounter Date Encounter Id Patient Instructions Last Modified By Organization Details Last Modified Time 01/18/2023 [id number] getting back to normal after low back pain: care instructions [email or web address] Not available 01/18/2023 08:37:37 Reason for Referral None Reported. Results Created Date Observation Date Name Description Value Unit Range Abnormal Flag Note LastModifiedBy Organization Detail LastModifiedTime 01/19/2001/18/2023 urina lysis , dipst ick Unknown Analyte Normal = light yellow Not Available 2099keshia moran [address] [place], [address], 01/18/2023 08:15:24 01/19/20 23 01/18/2023 urina lysis , dipst ick Unknown Analyte Normal = clear Not Available [address] [place], [place] [address], [address], 01/18/2023 08:15:24 01/19/20 23 01/18/2023 urina lysis , dipst ick Unknown Analyte Normal = negati ve Not Available [address] [place], [place] [address], [address], 01/18/2023 08:15:24 01/19/20 23 01/18/2023 urina lysis , dipst ick Unknown Analyte Normal = Negati ve Not Available [address] [place], [place] [address], [address], 01/18/2023 08:15:24 01/19/20 23 01/18/2023 urina lysis , dipst ick Unknown Analyte Normal = Negati ve Not Available [address] [place] [address], [place], [address], 01/18/2023 08:15:24 01/19/20 23 01/18/2023 urina lysis , dipst ick Unknown Analyte Normal = 1.010, 1.015, 1.020 Not Available [address], [place], [address], 01/18/2023 08:15:24 01/19/2001/18/2023 urina lysis , dipst ick Unknown Analyte Normal = Negati ve Not Available keshia moran [address], [place], [address], 01/18/2023 08:15:24 01/19/20 23 01/18/2023 urina lysis , dipst ick Unknown Analyte Normal = 6.5, 7.0, 7.5, 8.0 Not Available keshia moran [address], [place], [address], 01/18/2023 08:15:24 01/19/20 23 01/18/2023 urina lysis , dipst ick Unknown Analyte Normal = Negati ve Not Available keshia moran [address], [place], [address], 01/18/2023 08:15:24 01/19/2001/18/2023 urina lysis , dipst ick Unknown Analyte Normal = 0.2, 1.0 Not Available keshia moran [address], [place], [address], 01/18/2023 08:15:24 01/19/2001/18/2023 urina lysis , dipst ick Unknown Analyte Normal = Negati ve Not Available keshia moran [address], [place], [address], 01/18/2023 08:15:24 01/19/20 23 01/18/2023 urina lysis , dipst ick Unknown Analyte Normal = Negati ve Not Available keshia moran [address], [place], [address], 01/18/2023 08:15:24 01/19/20 23 01/18/2023 urina lysis , dipst ick Unknown Analyte Yellow Not Available naty [address], [place], [address], 01/18/2023 08:15:24 01/19/20 23 01/18/2023 urina lysis , dipst ick Unknown Analyte Clear Not Available naty [address], [place], [address], 01/18/2023 08:15:24 01/19/20 23 01/18/2023 urina lysis , dipst ick Unknown Analyte Negati ve Not Available keshia moran [address], [place], [address], 01/18/2023 08:15:24 01/19/20 23 01/18/2023 urina lysis , dipst ick Unknown Analyte Negati ve Not Available keshia moran [address], [place], [address], 01/18/2023 08:15:24 01/19/2001/18/2023 urina lysis , dipst ick Unknown Analyte Negati ve Not Available keshia moran [address], [place], [address], 01/18/2023 08:15:24 01/19/20 23 01/18/2023 urina lysis , dipst ick Unknown Analyte 1.010 Not Available naty [address], [place], [address], 01/18/2023 08:15:24 01/19/2001/18/2023 urina lysis , dipst ick Unknown Analyte Trace- intact Not Available keshia moarn [address], [place], [address], 01/18/2023 08:15:24 01/19/20 23 01/18/2023 urina lysis , dipst ick Unknown Analyte 6.0 Not Available [address] [place], [address], 01/18/2023 08:15:24 01/19/20 23 01/18/2023 urina lysis , dipst ick Unknown Analyte Negati ve Not Available [address]an [address] [place], [address], 01/18/2023 08:15:24 01/19/20 23 01/18/2023 urina lysis , dipst ick Unknown Analyte 0.2 E.U./d L Not Available [address]keshia moran [address] [place], [address], 01/18/2023 08:15:24 01/19/20 23 01/18/2023 urina lysis , dipst ick Unknown Analyte Negati ve Not Available 20[address]keshia moran [address] [place], [address], 01/18/2023 08:15:24 01/19/20 23 01/18/2023 urina lysis , dipst ick Unknown Analyte Negati ve Not Available [address] moran [address] [place], [address], 01/18/2023 08:15:24 Result Notes None recorded. Problems Name Problem SNOMED Code Status Onset Date Resolution Date Notes Provider Name and Address Organization Details Recorded Time Anxiety 09202734 Active 023 RUBI Kim - [facility] 11/22/2022 11:22:05 Problem Notes None recorded. Medical Equipment None Reported. Allergies Allergen ID Allergen Name Allergen Category Reaction Reaction Severity Criticality Documentation Date Start Date Code Code System Note Provider Name and Address Organization Details Recorded Time 386146 amoxicill in medicatio n Not available Not available Not available 11/22/2022 723 RxNorm pt unsur e if react ion was d/t anxie ty, pt exper ience d shaki ness and heart beati ng out of chest Elsy Mejia jossue PA - [facility] 3 11:20:56 [id number] Tamiflu medicatio n Not available Not available Not available 11/22/2022 44632 7 RxNorm pt unsur e if react ion was d/t anxie ty, pt exper ience d shaki ness and heart beati ng out of chest Elsy Mejia jossue PA - [facility] 3 11:21:06 Medications Name Sig Start Date Stop Date Status Note LastModified by Organization Details LastModified Time cyclobenzap rine 10 mg tablet TAKE 1 TABLET BY MOUTH TWICE A DAY AT BEDTIME FOR 5 DAYS active Not Available Not Available No t Available meloxicam 15 mg tablet TAKE 1 TABLET BY MOUTH EVERY DAY FOR 30 DAYS 11/22 completed Not Available Not Available Not Available pantoprazol e 20 mg tablet,kristin yed release TAKE 1 TABLET BY MOUTH EVERY DAY 11/22 completed Not Available Not Available Not Available amitriptyli ne 25 mg tablet TAKE 1 TABLET BY MOUTH AT BEDTIME. 11/22 completed Not Available Not Available Not Available pantoprazol e 40 mg tablet,kristin yed release TAKE 1 TABLET BY MOUTH EVERY DAY 11/22 completed Not Available Not Available Not Available gabapentin 300 mg capsule TAKE 1 CAPSULE BY MOUTH AT BEDTIME 11/22 completed Not Available Not Available Not Available methylpredn isolone 4 mg tablets in a dose pack TAKE 6 TABLETS ON DAY 1 DIRECTED ON PACKAGE AND DECREASE BY 1 TAB EACH DAY FOR A TOTAL OF 6 DAYS 11/22 completed Not Available Not Available Not Available naproxen 500 mg tablet TAKE 1 TABLET BY MOUTH TWICE A DAY FOR 5 DAYS active Not Available Not Available No t Available hydroxyzine pamoate 25 mg capsule TAKE 1 CAPSULE BY MOUTH TWICE A DAY NEEDED FOR ITCH *TO LAST 30 DAYS* 11/22 completed Not Available Not Available Not Available neomycin-po lymyxin-hyd rocort 3.5 mg-10,000 unit/mL-1 % ear drops,susp INSTILL 4 DROPS INTO AFFECTED EAR(S) 3 TIMES A DAY FOR 7 DAYS 01/18 completed Not Available Not Available Not Available escitalopra m 10 mg tablet TAKE 1 TABLET BY MOUTH EVERY DAY 11/22 completed Not Available Not Available Not Available cyclobenzap rine 5 mg tablet TAKE 1 TABLET BY MOUTH EVERY 8 HOURS X15 DAYS 11/22 completed Not Available Not Available Not Available escitalopra m 5 mg tablet TAKE 1 TABLET BY MOUTH EVERY DAY 11/22 completed Not Available Not Available Not Available Vitals Date Recorded Body height Body mass index (BMI) Body weight Body temperature Respiratory rate Heart rate Oxygen saturation Oxygen saturation in Arterial blood by Pulse oximetry Systolic blood pressure Diastolic blood pressure Provider Name and Address Organization Details Last Updated DateTime 3 180.34 cm 25.1 kg/m2 64059.6 3 g 97.7 [degF] 18 /min 80 /min 100 % 100 % 117 mm[Hg] 76 mm[Hg] AUTUMN Harkins PA - [facility] 3 08:16:38 Date Recorded Body height Body mass index (BMI) Body weight Oxygen saturation Oxygen saturation in Arterial blood by Pulse oximetry Heart rate Respiratory rate Body temperature Systolic blood pressure Diastolic blood pressure Provider Name and Address Organization Details Last Updated DateTime 3 180.34 cm 25.1 kg/m2 82559.6 3 g 98 % 98 % 79 /min 18 /min 98 [degF] 119 mm[Hg] 80 mm[Hg] Elsy Mejia PA - [facility] 3 11:24:59 Social History Question Answer Notes LastModified by Organizat ion Details LastModified Time Tobacco Smoking Status Current Every Day Smoker Elsy marcum PA - [facility] 11/22/2022 11:22:32 What Is Your Level Of Alcohol Consumption? Occasional Information not available 11/22/2022 How Many Times Per Week Do You Consume Alcohol? 1-2 Times Per Week Information not available 11/22/2022 How Much Tobacco Do You Smoke? 0.5 PPD Information not available 11/22/2022 Do You Use Any Illicit Or Recreational Drugs? No Information not available 11/22/2022 Have You Recently Traveled Abroad? No Information not available 11/22/2022 Sex: Unknown Functional Status None recorded. Mental Status None recorded. Family History Relationship Description Onset Age of this Age Resolved Age Notes LastModified by Organization Details LastModified Time Father No current problems or disability [email or web address] Not available 11/22 11:22:10 Mother No current problems or disability [email or web address] Not available 11/22 11:22:10 Medical History No medical history recorded. Gynecological HistoryNo gynecological history recorded. Obstetrics History GPAL:G 0 P 0 0 0 0 Immunizations Vaccine Type Date Status Note Provider Nam e and Address Organization Details Recorded Time Influenza, split virus, quadrivalent, preservative 9 completed Elsy Mejia null, PA - [facility] 11/22/2022 11:19:34 COVID-19, mRNA, LNP-S, PF, 100 mcg/0.5mL dose or 50 mcg/0.25mL dose 1 completed Elsy Mejia null, PA - [facility] 11/22/2022 11:19:34 COVID-19, mRNA, LNP-S, PF, 100 mcg/0.5mL dose or 50 mcg/0.25mL dose 1 completed Elsy Mejia null, PA - [facility] 11/22/2022 11:19:34 Tdap 9 completed Elsy Mejia null, PA - [facility] 11/22/2022 11:19:34 Past Encounters Encounter ID Performer Location Encounter Start Date Encounter Closed Date Diagnosis/Indication Diagnosis SNOMED-CT Code Diagnosis ICD10 Code Diagnosis Note [id number] [address] [place] [address] 03/08/2019 12:39:50 03/08/2019 13:15:48 [id number] [address] [place] [address] 11/24/2019 14:58:04 11/24/2019 15:58:01 [id number] [address] [place] [address] 03/29/2022 08:23:18 03/29/2022 09:27:30 [id number] [address] [facility] [place] [address] 08/18/2020 10:51:23 08/18/2020 11:44:31 [id number] [address] [facility] [place] [address] 11/19/2019 15:10:49 11/19/2019 16:47:36 [id number] [address] [facility] [place] [address] 04/11/2020 08:24:51 04/11/2020 09:39:14 [id number] [address] [facility] [place] [address] 10/07/2020 08:14:44 10/07/2020 09:33:52 [id number] AMARA HONG MD [address] [facility] [place] [address] 11/22/2022 09:22:18 11/22/2022 12:31:49 Otitis externa of right ear [id number] 306155 H60.91 Follow up with your PCP in 4 weeks for an ear re-check [id number] Satish Zacarias MD [address] [facility] [place] [address] 01/18/2023 08:05:42 01/18/2023 08:33:32 Pain in left lumbar region of back [id number] M54.50 Muscle spasm on exam Health Concerns Section Related Observation LastModified by Organization Detai ls LastModified Time None Recorded Concern Status LastModified by Organization Details LastModified Time None Recorded Advance Directives Directive None Recorded Payers Encounter Date Sequence Insurance Name Policy Number Policy Lott Covered Member ID Lott Member ID Guarantor Name 10/07/2020 1 [place] [facility] [place] [id number] Kellen Mdasen [id number] Kellen Madsen 03/29/2022 1 [place] [facility] [place] [id number] Kellen Woodsonion [id number] Kellen Woodsonion 11/22/2022 1 [place] [id number] Kellen Harkins Fillion [id number] Kellen Fillion 01/18/2023 1 [place] [id number] Kellen Harkins Fillion [id number] Kellen Woodsonion Notes Date Note Type Note Provider Name and Address Organization Details Recorded Time 11/22/2022 text/html Ear Pain Brief HPIReported bypatient.Location :right Onset/Timing:new onset; intermittent pain; gradual onset Duration:occurs daily; constant pain Quality:no discharge from the ears;dull pain;deep pain;itching Severity:no fever; able to perform daily activities; no interference with sleep Context:no recent URI;recent trauma cut inside of right ear 2 weeks ago, itchy and painful on and off for 2 weeks. No redness, d/c, jaw pain. fever. or neck pain. AMARA HONG MD [address] [facility] [place], [address], [facility] 11/22/2022 12:38:56 01/18/2023 text/html Back Pain/Injury UCReported bypatient.Location :lower back; pain is not radiating Quality:sharp;musc le spasms Severity:interfere nce with sleep;interference with work Duration:4 days Context:atraumatic ; prior back problems; previous imaging studies Alleviating Factors:heat; rest Aggravating Factors:bending/sq uatting;bending over/standing up;going from sit to stand;twisting;wal rosie Prior Imaging:x ray Satish Zacarias MD [address] [place], [address], [facility] 01/18/2023 08:37:41 OBGyn Episode No OBEpisode recorded.
== END 2024-09-26 09:45 | disposition home or self-care (01) ==
PROVIDERS: PCP Internal Medicine; Visit Provider Physician Assistant
DX: H66.004 Acute suppurative otitis media without spontaneous rupture of ear drum, recurrent, right ear (principal); H61.21 Impacted cerumen, right ear

== ENCOUNTER → 2024-09-26 08:14 | Outpatient (BNVA) | payer BC, SELFPAY | PROVIDERS: PCP Internal Medicine; Visit Provider Physician Assistant | DX: H61.21 Impacted cerumen, right ear (principal); H66.004 Acute suppurative otitis media without spontaneous rupture of ear drum, recurrent, right ear | CPT/HCPCS: 69209 ==

== ENCOUNTER 2024-10-07 14:26 | Outpatient (AMB) | payer BC, SELFPAY ==
[2024-10-07 14:28] VITALS: BP 130/74; PULSE 80; O2SAT 97; BMI 26.8
--- NOTE | 2024-10-07 14:28 | A.OFFPC_ITS ---
Vital Signs 10/07/24 14:28 Height 5 ft 11 in Weight 192 lb BMI 26.8 BP 130/74 Blood Pressure Location Rt brachial Position Sitting Pulse 80 Pulse Source Pulse Oximeter Pulse Oximetry (%) 97 Oxygen Delivery Method Room Air Intake Visit Reasons: Annual PE Allergies amoxicillin Allergy (Unknown, Verified 10/07/24 14:34) shortness of breath oseltamivir Adverse Reaction (Unknown, Verified 10/07/24 14:34) Diarrhea Medication List - Last Reconciled 10/07/24 by Jes Machuca MD buspirone 10 mg PO TID magnesium oxide 400 mg PO DAILY sertraline 50 mg PO DAILY Tobacco use date assessed: 06/25/24 Dental Screening Dental Screen Date: 06/25/24 HPI Annual PE HPI Details Adult physical exam The patient is a 54-year-old female presenting with anxiety and menopausal symptoms. - Reports intensified anxiety, newly pre scribed medication, and beginning group therapy. Through psychiatrist . - Financial stress due to unpaid work le ave for over a month, causing difficulty leaving home. - Menopausal symptoms potentially worsen ing anxiety; hormonal levels to be e valuated. Health Maintenance - Ordered fasting blood work to check ho rmone levels related to menopause. - due for mammogram but does not want to pursue at this time - due for colonoscopy appointment coming up - has OBGYN appointment coming up Patient Instructions - Attend the lab for a fasting blood shiva t - Discuss further treatment and manageme nt options with the psychiatrist. Review of Systems - Endocrine: Reports sleeping with windo ws open due to anxiety management. - General: No fever no chills - Neurological: No headaches no dizzin ess - Ear nose throat: No sore throat no hearing difficulty no ear pain - Cardiovascular: No syncope, no chest pain, no palpitations - Gastrointestinal: No nausea vomiting or diarrhea - Genitourinary: No dysuria - Skin: No new complaints Physical Exam General: Cooperative, healthy appearing, comfortable, no acute distress Orientation: Patient oriented x3 Limitations: Due to anxiety Head: Normal to inspection Ears: Within normal limit visually Nose: Normal external nose present Face and sinus: Normal facial exam Eyes: Appearance normal, extraocular movement intact pupils reactive Neck: Normal visual inspection and supple, no enlargement or nodules felt Respiratory: Normal respiratory effort and able to speak in complete sentences. Clear to auscultation, no stridor Breast exam will be through OBGYN Cardiovascular: S1 and S2 GI: Normal to inspection. Soft to palpation and nontender Skin: Turgor normal, no acute findings, no rashes or skin problems that need to be addressed Neuro: Patient oriented x3, motor sensory intact, balance intact, tandem pass Extremities: Normal to inspection [facility] Medical History (Updated 10/07/24 @ 14:55 by Jes Machuca MD) Major depressive disorder, severe Dream anxiety disorder Neck pain on right side Headache Anxiety about health Surgical History No pertinent past surgical history Social History Housing: Other Unable to assess alcohol history related to: Unknown Alcohol intake: never Patient Tobacco Use Status: Former Tobacco user Cigarettes Per Day: 6 e-Cigarette/Vaping Use: Never Used service: No Current occupational status: employed Cognitive needs: No Hearing needs: No Vision needs: Yes Questionnaire PHQ-9 Over the last 2 weeks, how often have you been bothered by any of the following problems? 1. Little interest or pleasure in doing things: more than half the days 2. Feeling down, depressed, or hopeless: more than half the days 3. Trouble falling or staying asleep, or sleeping too much: nearly every day 4. Feeling tired or having little energy: several days 5. Poor appetite or overeating: not at all 6. Feeling bad about yourself - or that you are a failure or have let yourself or your family down: several days 7. Trouble concentrating on things, such as reading the newspaper or watching television: not at all 8. Moving or speaking so slowly that other people could have noticed. Or the opposite - being so fidgety or restless that you have been moving around a lot more than usual: not at all 9. Thoughts that you would be better off or of hurting yourself in some way: not at all Total score: 9 Depression Screening Interpretation: Positive Depression Screening Follow-up: Existing condition and In treatment Depression Screening Done: Yes Source: Developed by Drs. Soto Juarez, Nica Etienne, Feng Goodrich and colleagues, with an educational dixon from [employer]. Thrive Questionnaire Date Thrive assessed: 09/30/24 I am a: Patient What is your living situation today?: I have a steady place to live Within the past 12 months, did the food you bought not last and you didn't have the money to get more?: Never true Within the past 12 months, did you worry whether your food would run out before you got money to buy more?: Never true Do you have trouble paying for medicines?: No Do you have trouble getting transportation to medical appointments?: No Do you have trouble paying your heating and electricity bill?: No Do you have trouble taking care of your child, family member or friend?: No Do you have trouble with day-to-day activities such as bathing, preparing meals, shopping, managing finances, etc.?: No Are you currently unemployed and looking for a job?: No Are you interested in more education?: No Please select the resources that you would like help with: None Currently or been in a relationship where the following occur: No concerns reported THRIVE Score: 0 AUDIT C Alcohol Use Questionnaire (AUDIT-C) 1. How often do you have a drink containing alcohol?: Monthly or less 2. How many drinks containing alcohol do you have on a typical day when you are drinking?: 1 or 2 3. How often do you have six or more drinks on one occasion?: Never Total Score: 1 ROANLD-7 AMB Questionnaire RONALD-7 Date RONALD - 7 assessed: 06/25/24 Feeling nervous, anxious, or on edge: 1 = Several days Not being able to stop or control worryin = Several days Worrying too much about different things: 0 = Not at all Trouble relaxin = Several days Being so restless that it is hard to sit still: 0 = Not at all Becoming easily annoyed or irritable: 0 = Not at all Feeling afraid as if something awful might happen: 0 = Not at all Total RONALD-7 score (0-4 normal; 5-9 mild; 10-14 moderate; 15-21 severe): 3 Source: Developed by Drs. Soto Juarez, Nica Etienne, Feng Goodrich and colleagues, with an educational dixon from [employer] RONALD-7 Assessment Billing RONALD-7 Assessment Tool: RONALD-7 Assessment 17751 Physical exam (Primary Care) Vital Signs: Last Vital Signs Pulse 80 10/07/24 14:28 BP 130/74 10/07/24 14:28 Pulse Ox 97 10/07/24 14:28 Oxygen Delivery Method Room Air 10/07/24 14:28 BMI result Body Mass Index 26.8 Tobacco/Smoking Status: Tobacco use Status Tobacco use date assessed 06/25/24 10/07/24 14:29 Patient Tobacco Use Status Former Tobacco user 10/07/24 14:29 e-Cigarette/Vaping Use Never Used 10/07/24 14:29 PHQ-9: PHQ-9 Score PHQ-9: Total score 9 10/07/24 14:37 Depression Screening Interpretation: Positive Depression Screening Follow-up: Existing condition and In treatment Thrive Assessment: Date of Thrive Assessment Date Thrive assessed 09/30/24 10/07/24 14:29 Currently or been in a relationship where the following occur: No concerns reported Coding Level of Care Code Est Pt Level 3 (86414) Est Pt Prev Care 40-64y(47764) Diagnoses Encounter for general adult medical examination with abnormal findings Z00.01 Hot flashes R23.2 Difficulty sleeping G47.9 Major depressive disorder, severe F32.2 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 Additional Codes RONALD-7 Assessment Billing - RONALD-7 Assessment Tool: RONALD-7 Assessment 95669 ([id number]) Assessment & Plan Assessment & Plan (1) Encounter for general adult medical examination with abnormal findings: Code(s): Z00.01 - Encounter for general adult medical examination with abnormal findings Category: Medical (2) Hot flashes: Code(s): R23.2 - [place] Category: Medical (3) Difficulty sleeping: Code(s): G47.9 - Sleep disorder, unspecified Category: Medical (4) Major depressive disorder, severe: Code(s): F32.2 - Major depressive disorder, single episode, severe without psychotic features Category: Medical (5) 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 - Reports intensified anxiety, newly prescribed medication, and beginning group therapy. Through psychiatrist . - Financial stress due to unpaid work leave for over a month, causing difficulty leaving home. - Menopausal symptoms potentially worsening anxiety; hormonal levels to be evaluated. Health Maintenance - Ordered fasting blood work to check hormone levels related to menopause. - due for mammogram but does not want to pursue at this time - due for colonoscopy appointment coming up - has OBGYN appointment coming up Patient Instructions - Attend the lab for a fasting blood test - Discuss further treatment and management options with the psychiatrist. Orders: Orders Complete Blood Count Auto Diff Today F32.2 - Major depressive disorder, single episode, severe without psychotic features, F51.5 - Nightmare disorder, G47.9 - Sleep disorder, unspecified, Z00.01 - Encounter for general adult medical examination with abnormal findings TSH reflex Free T4 Today F32.2 - Major depressive disorder, single episode, severe without psychotic features, F51.5 - Nightmare disorder, G47.9 - Sleep disorder, unspecified, Z00.01 - Encounter for general adult medical examination with abnormal findings Follicle Stimulating Hormone Today F32.2 - Major depressive disorder, single episode, severe without psychotic features, F51.5 - Nightmare disorder, G47.9 - Sleep disorder, unspecified, Z00.01 - Encounter for general adult medical examination with abnormal findings Lutenizing Hormone Today F32.2 - Major depressive disorder, single episode, severe without psychotic features, F51.5 - Nightmare disorder, G47.9 - Sleep disorder, unspecified, Z00.01 - Encounter for general adult medical examination with abnormal findings Comprehensive Forsan. Panel Fast Today F32.2 - Major depressive disorder, single episode, severe without psychotic features, F51.5 - Nightmare disorder, G47.9 - Sleep disorder, unspecified, Z00.01 - Encounter for general adult medical e xamination with abnormal findings Lipid Panel Today F32.2 - Major depressive disorder, single episode, severe without psychotic features, F51.5 - Nightmare disorder, G47.9 - Sleep disorder, unspecified, Z00.01 - Encounter for general adult medical examination with abnormal findings Vitamin D 25-OH (D2 and D3) Today F32.2 - Major depressive disorder, single episode, severe without psychotic features, F51.5 - Nightmare disorder, G47.9 - Sleep disorder, unspecified, Z00.01 - Encounter for general adult medical examination with abnormal findings Vitamin B12 Today F32.2 - Major depressive disorder, single episode, severe without psychotic features, F51.5 - Nightmare disorder, G47.9 - Sleep disorder, unspecified, Z00.01 - Encounter for general adult medical examination with abnormal findings
--- OUTSIDE RECORDS SUMMARY | 2024-10-07 16:28 | XMS_ITS | Data Portability ---
Author Organization [facility], [address] Address [address] [place] [address] Care Team Providers Care Supervisor [employer] Name Role Phone MELYSSAYESENIARaysa Primary Care Provider [phone] Assessment No assessment recorded. Plan of Treatment Reminders Order Date Submit Date Provider Last Modified By Organization Details Last Modified Time Details Appointments None recorded. Lab urinalysis, dipstick 2022 023 [place] [address] [address] [facility], [address] [facility], [place], [address], 3 08:37:38 Referral None recorded. Procedures None recorded. Surgeries None recorded. Imaging None recorded. Medication Orders neomycin-po lymyxin-hyd rocort 3.5 mg-10,000 unit/mL-1 % ear drops,susp 2022 023 icou[facility] er1 [facility]/Pharmacy #[id number], [address] [place], [address], 3 08:15:03 cyclobenzap rine 10 mg tablet 2022 023 [facility]/Pharmacy #[id number], [address] [place], [address], 3 08:37:39 naproxen 500 mg tablet 2022 023 [facility]/Pharmacy #[id number], [address] [place], [address], 3 08:37:39 Patient TargetsNo targets recorded. Patient Instructions Encounter Date Encounter Id Patient Instructions Last Modified By Organization Details Last Modified Time 01/18/2023 [id number] getting back to normal after low back pain: care instructions [email or web address] Not available 01/18/2023 08:37:37 Reason for Referral None Reported. Results Created Date Observation Date Name Description Value Unit Range Abnormal Flag Note LastModifiedBy Organization Detail LastModifiedTime 01/19/2001/18/2023 urina lysis , dipst ick Unknown Analyte Normal = light yellow Not Available 2099keshia moran [address] [place], [address], 01/18/2023 08:15:24 01/19/20 23 01/18/2023 urina lysis , dipst ick Unknown Analyte Normal = clear Not Available [address] [place], [place] [address], [address], 01/18/2023 08:15:24 01/19/20 23 01/18/2023 urina lysis , dipst ick Unknown Analyte Normal = negati ve Not Available [address] [place], [place] [address], [address], 01/18/2023 08:15:24 01/19/20 23 01/18/2023 urina lysis , dipst ick Unknown Analyte Normal = Negati ve Not Available [address] [place], [place] [address], [address], 01/18/2023 08:15:24 01/19/20 23 01/18/2023 urina lysis , dipst ick Unknown Analyte Normal = Negati ve Not Available [address] [place] [address], [place], [address], 01/18/2023 08:15:24 01/19/20 23 01/18/2023 urina lysis , dipst ick Unknown Analyte Normal = 1.010, 1.015, 1.020 Not Available [address], [place], [address], 01/18/2023 08:15:24 01/19/2001/18/2023 urina lysis , dipst ick Unknown Analyte Normal = Negati ve Not Available keshia moran [address], [place], [address], 01/18/2023 08:15:24 01/19/20 23 01/18/2023 urina lysis , dipst ick Unknown Analyte Normal = 6.5, 7.0, 7.5, 8.0 Not Available keshia moran [address], [place], [address], 01/18/2023 08:15:24 01/19/20 23 01/18/2023 urina lysis , dipst ick Unknown Analyte Normal = Negati ve Not Available keshia moran [address], [place], [address], 01/18/2023 08:15:24 01/19/2001/18/2023 urina lysis , dipst ick Unknown Analyte Normal = 0.2, 1.0 Not Available keshia moran [address], [place], [address], 01/18/2023 08:15:24 01/19/2001/18/2023 urina lysis , dipst ick Unknown Analyte Normal = Negati ve Not Available keshia moran [address], [place], [address], 01/18/2023 08:15:24 01/19/20 23 01/18/2023 urina lysis , dipst ick Unknown Analyte Normal = Negati ve Not Available keshia moran [address], [place], [address], 01/18/2023 08:15:24 01/19/20 23 01/18/2023 urina lysis , dipst ick Unknown Analyte Yellow Not Available naty [address], [place], [address], 01/18/2023 08:15:24 01/19/20 23 01/18/2023 urina lysis , dipst ick Unknown Analyte Clear Not Available naty [address], [place], [address], 01/18/2023 08:15:24 01/19/20 23 01/18/2023 urina lysis , dipst ick Unknown Analyte Negati ve Not Available keshia moran [address], [place], [address], 01/18/2023 08:15:24 01/19/20 23 01/18/2023 urina lysis , dipst ick Unknown Analyte Negati ve Not Available keshia moran [address], [place], [address], 01/18/2023 08:15:24 01/19/2001/18/2023 urina lysis , dipst ick Unknown Analyte Negati ve Not Available keshia moran [address], [place], [address], 01/18/2023 08:15:24 01/19/20 23 01/18/2023 urina lysis , dipst ick Unknown Analyte 1.010 Not Available naty [address], [place], [address], 01/18/2023 08:15:24 01/19/2001/18/2023 urina lysis , dipst ick Unknown Analyte Trace- intact Not Available keshia moran [address], [place], [address], 01/18/2023 08:15:24 01/19/20 23 01/18/2023 urina lysis , dipst ick Unknown Analyte 6.0 Not Available [address] [place], [address], 01/18/2023 08:15:24 01/19/20 23 01/18/2023 urina lysis , dipst ick Unknown Analyte Negati ve Not Available [address] [place], [address], 01/18/2023 08:15:24 01/19/20 23 01/18/2023 urina lysis , dipst ick Unknown Analyte 0.2 E.U./d L Not Available [address]keshia moran [address] [place], [address], 01/18/2023 08:15:24 01/19/20 23 01/18/2023 urina lysis , dipst ick Unknown Analyte Negati ve Not Available [address]keshia moran [address] [place], [address], 01/18/2023 08:15:24 01/19/20 23 01/18/2023 urina lysis , dipst ick Unknown Analyte Negati ve Not Available [address] [place], [address], 01/18/2023 08:15:24 Result Notes None recorded. Problems Name Problem SNOMED Code Status Onset Date Resolution Date Notes Provider Name and Address Organization Details Recorded Time Anxiety 24048561 Active 023 RUBI Kim - [facility] 11/22/2022 11:22:05 Problem Notes None recorded. Medical Equipment None Reported. Allergies Allergen ID Allergen Name Allergen Category Reaction Reaction Severity Criticality Documentation Date Start Date Code Code System Note Provider Name and Address Organization Details Recorded Time 888281 amoxicill in medicatio n Not available Not available Not available 11/22/2022 723 RxNorm pt unsur e if react ion was d/t anxie ty, pt exper ience d shaki ness and heart beati ng out of chest Elsy Mejia jossue PA - [facility] 3 11:20:56 564205 Tamiflu medicatio n Not available Not available Not available 11/22/2022 70748 7 RxNorm pt unsur e if react [...] Not Available Vitals Date Recorded Body height Provider Name an d Address Organization Details Last Updated DateTime 01/18/2023 180.34 cm IRIS COUVERTIER PA - [facility] 01/18/2023 08:14:42 Date Recorded Body mass index (BMI) Body weight Provider Name and Address Organization Details Last Updated DateTime 01/18/2023 25.1 kg/m2 01970.63 g IRIS COUVERTIER PA - [facility] 01/18/2023 08:14:50 Date Recorded Body temperature Provider Name a nd Address Organization Details Last Updated DateTime 01/18/2023 97.7 [degF] IRIS COUVERTIER PA - [facility] 01/18/2023 08:16:08 Date Recorded Respiratory rate Provider Name a nd Address Organization Details Last Updated DateTime 01/18/2023 18 /min IRIS COUVERTIER PA - [facility] 01/18/2023 08:16:10 Date Recorded Heart rate Provider Name an d Address Organization Details Last Updated DateTime 01/18/2023 80 /min IRIS COUVERTIER PA - [facility] 01/18/2023 08:17:35 Date Recorded Oxygen saturation Oxygen saturation in Arterial blood by Pulse oximetry Provider Name and Address Organization Details Last Updated DateTime 01/18/2023 100 % 100 % IRIS COUVERTIER PA - [facility] 01/18/2023 08:16:24 Date Recorded Body height Provider Name an d Address Organization Details Last Updated DateTime 11/22/2022 180.34 cm Elsy Mejia PA - [facility] 11/22/2022 11:22:46 Date Recorded Body mass index (BMI) Body weight Provider Name and Address Organization Details Last Updated DateTime 11/22/2022 25.1 kg/m2 14233.63 g Elsy Mejia PA - [facility] 11/22/2022 11:22:50 Date Recorded Pain severity - 0-10 verbal numeric rating [Score] - Reported Provider Name and Address Organization Details Last Updated DateTime 11/22/2022 7 Elsy Mejia PA - [facility] 11/22/2022 11:22:59 Date Recorded Oxygen saturation Oxygen saturation in Arterial blood by Pulse oximetry Provider Name and Address Organization Details Last Updated DateTime 11/22/2022 98 % 98 % Elsy Romanyris PA - [facility] 11/22/2022 11:25:03 Date Recorded Heart rate Provider Name an d Address Organization Details Last Updated DateTime 11/22/2022 79 /min Elsy Romanyris PA - [facility] 11/22/2022 11:25:07 Date Recorded Respiratory rate Provider Name a nd Address Organization Details Last Updated DateTime 11/22/2022 18 /min Elsy Roberto PA - [facility] 11/22/2022 11:25:08 Date Recorded Body temperature Provider Name a nd Address Organization Details Last Updated DateTime 11/22/2022 98 [degF] Elsy Goldsmithambrose PA - [facility] 11/22/2022 11:25:13 Date Recorded Systolic blood pressure Diastolic blood pressure Provider Name and Address Organization Details Last Updated DateTime 01/18/2023 117 mm[Hg] 76 mm[Hg] AUTUMN YEUNG PA - [facility] 01/18/2023 08:16:38 Date Recorded Systolic blood pressure Diastolic blood pressure Provider Name and Address Organization Details Last Updated DateTime 11/22/2022 119 mm[Hg] 80 mm[Hg] Elsy Goldsmithambrose PA - [facility] 11/22/2022 11:24:59 Social History Question Answer Notes LastModified [...] SNOMED-CT Code Diagnosis ICD10 Code Diagnosis Note [id number] [address] [address] 03/08/2019 12:39:50 03/08/2019 13:15:48 [id number] _[address] [address] 11/24/2019 14:58:04 11/24/2019 15:58:01 [id number] [address] [facility] [place] [address] 03/29/2022 08:23:18 03/29/2022 09:27:30 [id number] [address] [facility] [place] [address] 08/18/2020 10:51:23 08/18/2020 11:44:31 [id number] [address] [facility] [place] [address] 11/19/2019 15:10:49 11/19/2019 16:47:36 [id number] [address] [facility] [place] [address] 04/11/2020 08:24:51 04/11/2020 09:39:14 [id number] [address] [facility] [place] [address] 10/07/2020 08:14:44 10/07/2020 09:33:52 [id number] AMARA HONG MD [address] [facility] [place] [address] 11/22/2022 09:22:18 11/22/2022 12:31:49 Otitis externa of right ear [id number] 196983 H60.91 Follow up with your PCP in 4 weeks for an ear re-check [id number] Satish Zacarias MD [address] [facility] [place] [address] 01/18/2023 08:05:42 01/18/2023 08:33:32 Pain in left lumbar region of back [id number] M54.50 Muscle spasm on exam Health Concerns Section Related Observation LastModified by Organization Detai ls LastModified Time None Recorded Concern Status LastModified by Organization Details LastModified Time None Recorded Advance Directives Directive None Recorded Payers Encounter Date Sequence Insurance Name Policy Number Policy Lott Covered Member ID Lott Member ID Guarantor Name 10/07/2020 1 [facility] [place] [id number] Kellen R Fillion [id number] Kellen Fillion 03/29/2022 1 [place] [id number] Kellen R Fillion [id number] Kellen Fillion 11/22/2022 1 [place] [id number] Kellen R Fillion [id number] Kellen Fillion 01/18/2023 1 [place] [id number] Kellen R Fillion [id number] Kellen Fillion Notes Date Note Type Note Provider Name [...] or neck pain. AMARA HONG MD [address] [place], [address], PA - [facility] 11/22/2022 12:38:56 01/18/2023 text/html Back Pain/Injury UCReported bypatient.Location :lower back; pain is not radiating Quality:sharp;musc le spasms Severity:interfere nce with sleep;interference with work Duration:4 days Context:atraumatic ; prior back problems; previous imaging studies Alleviating Factors:heat; rest Aggravating Factors:bending/sq uatting;bending over/standing up;going from sit to stand;twisting;wal rosie Prior Imaging:x ray Satish Zacarias MD [address] [place], [address], PA - [facility] 01/18/2023 08:37:41 OBGyn Episode No OBEpisode recorded.
== END 2024-10-07 15:23 | disposition home or self-care (01) ==
PROVIDERS: PCP Internal Medicine; Visit Provider Internal Medicine
DX: Z00.00 Encounter for general adult medical examination without abnormal findings (principal); R23.2 Flushing; G47.9 Sleep disorder, unspecified; F32.2 Major depressive disorder, single episode, severe without psychotic features; F51.5 Nightmare disorder

== ENCOUNTER → 2024-10-07 14:26 | Outpatient (BNVA) | payer BC, SELFPAY | PROVIDERS: PCP Internal Medicine; Visit Provider Internal Medicine | DX: Z00.01 Encounter for general adult medical examination with abnormal findings (principal); R23.2 Flushing; G47.9 Sleep disorder, unspecified; F32.2 Major depressive disorder, single episode, severe without psychotic features; F51.5 Nightmare disorder | CPT/HCPCS: 96127 ==

== ENCOUNTER 2024-11-03 07:39 | Outpatient (REF) | payer BC, SELFPAY ==
[2024-11-03 10:15] LABS: MANUAL DIFF FLAG NO
[2024-11-03 10:25] LABS: Basophils Absolute Auto 0.1 X10*3/uL (0.0-0.2); Basophils Percent Auto 0.9 % (0-2); Eosinophils Absolute Auto 0.2 X10*3/uL (0.0-0.4); Eosinophils Percent Auto 3.3 % (0-4); Hematocrit 41.5 % (37.0-47.0); Hemoglobin 13.5 g/dl (12.0-16.0); Imm Gran Abs Auto 0.02 X10*3/uL (0.00-0.03); Imm Gran Pct Auto 0.3 % (0.0-0.4); Lymphocytes Absolute Auto 1.6 X10*3/uL (1.2-4.9); Lymphocytes Percent Auto 22.6 % (20-40); Mean Corpuscular HGB Conc 32.5 g/dl (31.0-35.0); Mean Corpuscular Hemoglobin 29.7 pg (27.0-33.0); Mean Corpuscular Volume 91.4 fL (80.0-98.0); Mean Platelet Volume 10.2 fL (9.4-12.3); Monocytes Absolute Auto 0.5 X10*3/uL (0.1-1.2); Monocytes Percent Auto 7.3 % (2-11); Neutrophils Absolute Auto 4.6 x10*3/uL (2.0-8.3); Neutrophils Percent Auto 65.6 % (45-73); Platelet Count 290 X10*3/uL (160-400); Red Blood Count 4.54 X10*6/uL (4.20-5.50); Red Cell Distribution Width 13.2 % (11.0-16.0)
[2024-11-03 10:51] LABS: Alanine Aminotransferase 12 U/L (0-31); Albumin Level 4.2 g/dL (3.5-5.0); Alkaline Phosphatase 61 U/L (39-117); Anion Gap 12 (12-20); Aspartate Amino Transferase 24 U/L (5-31); Bilirubin Total 0.4 mg/dL (0.0-1.0); Blood Urea Nitrogen 11 mg/dL (9-16); Carbon Dioxide 24 mmol/L (22-29); Chloride 107 mmol/L (96-108); Cholesterol 222 mg/dL (<200); Estimated Glomerular Filt Rate > 60; Glucose Fasting 87 mg/dL (60-99); HDL Cholesterol 48 mg/dL (>40); LDL Cholesterol Calculated 141 mg/dL (<100); Potassium 4.2 mmol/L (3.3-5.1); Sodium 139 mmol/L (135-145); Total Protein 7.2 g/dL (6.5-8.0); Triglycerides 167 mg/dL (<150)
[2024-11-03 11:02] LABS: Vitamin B12 254 pg/mL (200-900)
[2024-11-03 11:07] LABS: TSH reflex Free T4 2.42 uIU/mL (0.32-4.0)
[2024-11-04 06:29] LABS: Follicle Stimulating Hormone 81.6 mIU/mL; Lutenizing Hormone 23.3 mIU/mL
[2024-11-07 19:58] LABS: Vitamin D 25-OH, D2 <4 ng/mL; Vitamin D 25-OH, D3 53 ng/mL; Vitamin D 25-OH, Total 53 ng/mL (30-100)
== END 2024-11-03 07:40 | disposition home or self-care (01) ==
LOC: HO.HMGCLDS 07:39
PROVIDERS: PCP Internal Medicine; Visit Provider Internal Medicine
DX: Z00.01 Encounter for general adult medical examination with abnormal findings (principal); G47.9 Sleep disorder, unspecified; F32.2 Major depressive disorder, single episode, severe without psychotic features; F51.5 Nightmare disorder
CPT/HCPCS: 36415; 80053; 80061; 82306; 82607; 83001; 83002; 84443; 85025